=== PATIENT | female | born 1995 | race American Indian/Alaskan Native ===

== ENCOUNTER 2017-09-08 11:26 | Outpatient (CLI) | payer MEDICAID ==
[2017-09-08 11:52] VITALS: BP 110/68
[2017-09-08] MEDS ORDERED: LACTATED RINGERS 500 ML IV ONE (12:22)
[2017-09-08 12:51] LABS: Bilirubin,Urine NEG (Negative); Blood,Urine NEG (Negative); Color,Urine Yellow (Yellow); Mucus,Urine FEW /HPF; Nitrite,Urine NEG (Negative); Protein,Urine <15 mg/dL mg/dL (Negative); RBC,Urine < 1.0 /HPF (0.0-6.0)
[2017-09-08] MEDS ORDERED: LACTATED RINGERS 1,000 ML IV SCH (13:00)
== END 2017-09-08 13:55 | disposition home or self-care (01) ==
LOC: TRG 11:26
PROVIDERS: ATTEND Obstetrics & Gynecology
DX: O47.02 False labor before 37 completed weeks of gestation, second trimester (principal); Z3A.25 25 weeks gestation of pregnancy
CPT/HCPCS: 59025; 81001; J7120

== ENCOUNTER 2017-09-28 11:24 | Outpatient (CLI) | payer MEDICAID ==
[2017-09-28 12:08] VITALS: BP 124/69
[2017-09-28] MEDS ORDERED: NORCO 5/325 PO ONE (13:29)
--- NOTE | 2017-09-28 15:31 | Ultrasound Report ---
ULTRASOUND BIOPHYSICAL PROFILE: History: well being Technique: Transabdominal ultrasound with Doppler interrogation. 2 - breathing movements 2 - movements 2 - posture and tone 2 - Qualitative amniotic fluid volume 8 - TOTAL SCORE OF POSSIBLE 8 Heart Rate (bpm) 154
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
== END 2017-09-28 16:00 | disposition home or self-care (01) ==
LOC: TRG 11:24 → LD 11:26 → TRG 16:00
PROVIDERS: ATTEND Obstetrics & Gynecology
DX: O26.893 Other specified pregnancy related conditions, third trimester (principal); R10.2 Pelvic and perineal pain; V89.2XXA Person injured in unspecified motor-vehicle accident, traffic, initial encounter; O47.03 False labor before 37 completed weeks of gestation, third trimester; Z3A.29 29 weeks gestation of pregnancy; Y93.89 Activity, other specified; Y92.89 Other specified places as the place of occurrence of the external cause; Y99.8 Other external cause status
CPT/HCPCS: 76805; 76819

== ENCOUNTER 2017-11-04 15:40 | Outpatient (CLI) | payer OTHER, MEDICAID ==
[2017-11-04] MEDS ORDERED: LACTATED RINGERS 500 ML IV ONE ×2 (16:53→18:05)
[2017-11-04] MEDS ORDERED: NACL 0.9% 1000 ML 1,000 ML ONE (17:01)
[2017-11-04] MEDS ORDERED: NACL 0.9% 1000 ML 1,000 ML IV SCH (18:00)
[2017-11-04] MEDS ORDERED: BRETHINE SUB-Q SCH (19:00)
[2017-11-05 12:34] VITALS: BP 112/64
== END 2017-11-04 19:48 | disposition home or self-care (01) ==
LOC: TRG 15:40
PROVIDERS: ATTEND Obstetrics & Gynecology
DX: O47.03 False labor before 37 completed weeks of gestation, third trimester (principal); Z3A.33 33 weeks gestation of pregnancy
CPT/HCPCS: 36415; 59025; 82731; 96360; 96361; 96372; J3105; J7030

== ENCOUNTER 2017-11-09 18:50 | Outpatient (CLI) | payer OTHER, MEDICAID ==
[2017-11-09 19:21] VITALS: BP 113/69
[2017-11-09] MEDS ORDERED: LACTATED RINGERS 500 ML IV ONE (19:52)
[2017-11-09 20:08] LABS: Bacteria,Urine 1+ /HPF (Negative); Bilirubin,Urine NEG (Negative); Blood,Urine NEG (Negative); Color,Urine Yellow (Yellow); Mucus,Urine FEW /HPF; Protein,Urine <15 mg/dL mg/dL (Negative)
== END 2017-11-09 22:23 | disposition home or self-care (01) ==
LOC: TRG 18:50
PROVIDERS: ATTEND Obstetrics & Gynecology
DX: O47.03 False labor before 37 completed weeks of gestation, third trimester (principal); Z3A.34 34 weeks gestation of pregnancy
CPT/HCPCS: 59025; 81001

== ENCOUNTER 2017-11-16 09:42 | Outpatient (CLI) | payer OTHER, MEDICAID ==
[2017-11-16] MEDS ORDERED: LACTATED RINGERS 500 ML IV ONE (10:06)
[2017-11-16 10:57] LABS: Bilirubin,Urine NEG (Negative); Blood,Urine NEG (Negative); Protein,Urine <15 mg/dL mg/dL (Negative); Urobilinogen,Urine < 2.0 mg/dL (<2.0)
[2017-11-16 11:00] LABS: Color,Urine Straw (Yellow)
[2017-11-16] MEDS ORDERED: NORMOSOL-R PH 7.4 1,000 ML IV ONE (11:07)
[2017-11-16 12:11] LABS: Hematocrit 38.2 % (30.3-42.9); Hemoglobin 12.7 gm/dl (10.1-14.3); Mean Corpuscular HGB Conc 33 % (30-34); Mean Corpuscular Hemoglobin 26 pg (28-32); Mean Corpuscular Volume 78 fl (79-97); Red Blood Count 4.88 M/mm3 (3.65-5.03); Red Cell Distribution Width 14.7 % (13.2-15.2)
[2017-11-16 12:25] LABS: Alanine Aminotransferase 10 units/L (7-56); Uric Acid 4.7 mg/dL (3.5-7.6)
[2017-11-16 13:01] LABS: Platelet Count 112 K/mm3 (140-440)
[2017-11-16 13:22] VITALS: BP 124/79
== END 2017-11-16 13:45 | disposition home or self-care (01) ==
LOC: TRG 09:42
PROVIDERS: ATTEND Obstetrics & Gynecology
DX: O47.03 False labor before 37 completed weeks of gestation, third trimester (principal); Z3A.35 35 weeks gestation of pregnancy
CPT/HCPCS: 36415; 59025; 81001; 82565; 83615; 84450; 84460; 84550; 85027; 96360; 96361

== ENCOUNTER 2017-11-16 15:38 | Inpatient (IN) | payer OTHER, MEDICAID ==
[2017-11-16] MEDS ORDERED: NORMOSOL-R PH 7.4 1,000 ML IV ONE (15:58)
[2017-11-16] MEDS ORDERED: ZOFRAN IV PRN ×2 (16:46→20:42)
[2017-11-16] MEDS ORDERED: STADOL IV PRN (16:46)
[2017-11-16] MEDS ORDERED: BRETHINE IVP PRN (16:46)
[2017-11-16] MEDS ORDERED: NARCAN 0.4 MG/1 ML IV PRN (16:46)
[2017-11-16] MEDS ORDERED: BRETHINE SUB-Q PRN (16:46)
[2017-11-16] MEDS ORDERED: MINERAL OIL PO PRN (16:46)
[2017-11-16] MEDS ORDERED: SUBLIMAZE IV PRN ×3 (16:46→18:00)
[2017-11-16] MEDS ORDERED: ePHEDrine SULFATE IV PRN ×2 (16:46→18:27)
[2017-11-16] MEDS ORDERED: XYLOCAINE 2% INFILTRATI ONE (16:46)
[2017-11-16] MEDS ORDERED: PHENERGAN PO PRN ×2 (16:46→20:42)
--- NOTE | 2017-11-16 16:52 | History and Physical Report ---
History of Present Illness Date of examination: 11/16/17 Date of admission: 11/16/17 15:38 Chief complaint: my water broke and I have contractions and bleeding History of present illness: This is a 22 yo at 35+4 weeks admitted to labor and delivery for advanced cervical dilation, sobeida, labor. She is a patient of [facility] with hx of labor but declined [place] back in june. she has Sickle cell trait unknown partner status. She also has thrombocytopenia gestational. She has hd contractions in the past with a FFN back in 2018 on Procardia . 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 denies: smoking, alcohol abuse, prescription drug abuse - Obstetrical History Expected Date of Delivery: 12/17/17 Actual Gestation: 35 Week(s) 4 Day(s) : 3 Para: 2 Hx # Term Pregnancies: 1 Number of Pregnancies: 1 Spontaneous Abortions: 0 Induced : 0 Number of Living Children: 2 Medications and Allergies Allergies Allergy/AdvReac Type Severity Reaction Status Date / Time No Known Allergies Allergy Verified 12/06/15 16:04 Home Medications Medication Instructions Recorded Confirmed Last Taken Type NIFEdipine [Procardia] 10 mg PO BID 11/16/17 11/16/17 11/16/17 08:00 History 10 MG Active Meds: Active Medications Betamethasone Acet/Betameth SodPhos ([place] Soluspan) 12 mg IM Q24HR RAE Stop: 11/18/17 10:01 Review of Systems All systems: negative Genitourinary: vaginal bleeding, leakage of fluid, contractions - Physical Exam Breasts: Positive: normal Cardiovascular: Regular rate, Normal S1 Lungs: Positive: Clear to auscultation, Normal air movement Abdomen: Positive: normal appearance, soft, normal bowel sounds. Negative: distention, tenderness, guarding Genitourinary (Female): Positive: normal external genitalia, normal perenium Vulva: both: normal Vagina: Positive: normal moisture Uterus: Positive: normal size Anus/Rectum: Positive: normal perianal skin Extremities: Positive: normal Deep Tendon Reflex Grade: Normal +2 - Obstetrical FHR: category 1 Cervical Dilatation: 3 Uterine Contraction Pattern: Regular Uterine Tone Measurement Phase: Contraction Uterine Contraction Intensity: Mild Results All other labs normal. Assessment and Plan A/P HD#1 labor GBS unknown - amp initiated NICCU consult IVF and labs sent betamethasone x1 now continous monitoring offer epidural at >6cm US to assess for bleeding and cuca expect vaginal delivery
[2017-11-16] MEDS ORDERED: CELESTONE SOLUSPAN IM SCH (17:00)
[2017-11-16] MEDS ORDERED: NORMOSOL-R PH 7.4 1,000 ML IV SCH (17:00)
[2017-11-16] MEDS ORDERED: PITOCin/NS 20 UNIT/1000ML DRIP 20 UNITS/1,000 ML BAG IV SCH ×2 (17:00→21:00)
[2017-11-16] MEDS ORDERED: PITOCin/NS 30 UNIT/500ML 30 UNITS/500 ML BAG IV SCH (17:00)
[2017-11-16] MEDS ORDERED: AMPICILLIN/NS 1 GM/50 ML 1 GM/50 ML BAG IV SCH (17:30)
--- NOTE | 2017-11-16 17:30 | Ultrasound Report ---
FINAL REPORT EXAM: US OB LIMITED HISTORY: vaginal bleeding r/o abruption TECHNIQUE: Ultrasound obstetrical transabdominal for placental evaluation PRIORS: None. FINDINGS: Single live intrauterine gestation present in cephalic presentation. cardiac activity present with heart rate of 152 beats minute Placenta is fundal and grade 2. No evidence for placental abruption. Placenta is not low lying IMPRESSION: No evidence for placental abruption
[2017-11-16] MEDS ORDERED: NARCAN 2 MG/2 ML IV PRN (18:27)
[2017-11-16] MEDS ORDERED: fentaNYL-BUPIV 2 MCG/ML-0.125% 200 MCG/100 ML BAG EPIDURAL SCH (19:00)
--- NOTE | 2017-11-16 19:37 | Anesthesia Consultation ---
Anesthesia Consult and Med Hx Date of service: 11/16/17 - Airway Anesthetic Teeth Evaluation: Good ROM Head & Neck: Adequate Mental/Hyoid Distance: Adequate Mallampati Class: Class III Intubation Access Assessment: Probably Good - Pulmonary Exam CTA: Yes - Cardiac Exam Cardiac Exam: RRR - Pre-Operative Health Status ASA Pre-Surgery Classification: ASA2 Proposed Anesthetic Plan: Epidural, Spinal - Pulmonary Hx Smoking: No Hx Asthma: No COPD: No Hx Pneumonia: No - Cardiovascular System Hx Hypertension: No - Central Nervous System Hx Seizures: No Hx Psychiatric Problems: No - Endocrine Hx Renal Disease: No Hx End Stage Renal Disease: No Hx Hypothyroidism: No Hx Hyperthyroidism: No - Hematic Hx Anemia: No Hx Sickle Cell Disease: No - Other Systems Hx Alcohol Use: No
--- NOTE | 2017-11-16 19:39 | Anesthesia Day of Surgery ---
Anesthesia Day of Surgery - Day of Surgery Patient Examined: Yes Patient H&P Reviewed: Yes Patient is NPO: Yes
[2017-11-16] MEDS ORDERED: PHENERGAN PR PRN (20:42)
[2017-11-16] MEDS ORDERED: LANSINOH TP PRN (20:42)
[2017-11-16] MEDS ORDERED: BENADRYL PO PRN (20:42)
[2017-11-16] MEDS ORDERED: MILK OF MAGNESIA PO PRN (20:42)
[2017-11-16] MEDS ORDERED: DULCOLAX PR PRN (20:42)
[2017-11-16] MEDS ORDERED: TUCKS PAD TP PRN (20:42)
[2017-11-16] MEDS ORDERED: TORADOL IV PRN (20:42)
[2017-11-16] MEDS ORDERED: PERCOCET 5/325 PO PRN (20:42)
--- NOTE | 2017-11-16 20:42 | Procedure Note ---
OB Delivery Note - Delivery Date of Delivery: 11/16/17 Surgeon: EVERTON TAI Estimated blood loss: 200cc - Vaginal Delivery presentation: vertex Delivery position: OA Intrapartum events: labor-<37 weeks Delivery induction: none Delivery augmentation: rupture of membranes, pitocin Delivery monitor: external FHT, external uterine Route of delivery: Delivery placenta: spontaneous Delivery cord: 3 umbilical vessels Episiotomy: none Delivery laceration: none Anesthesia: none Delivery comments: Patient was noted to be c/c+1 and commenced to pushing in OA presentation. The head and shoulders delivered easily. at 2029. The naso and oropharynx suctioned while baby lie on mothers chest. Apgars 8 and 9. The cord was clamped and cut The placenta delivered at 2032 intact with 3 vessel cord. EBL 200 cc. No lacs noted. Patient tolerated procedure well. Male weighing 2559g. - A at 1 minute: 8 at 5 minutes: 9 Infant Gender: Male
[2017-11-16] MEDS ORDERED: SODIUM CHLORIDE FLUSH SYRINGE 10 ML IV SCH (21:00)
[2017-11-17] MEDS: MOTRIN PO SCH ×3 (00:05→13:10)
[2017-11-17] MEDS: COLACE PO SCH ×2 (00:06→09:15)
[2017-11-17] MEDS: SENOKOT S PO SCH (00:06)
[2017-11-17] MEDS: TYLENOL PO PRN ×2 (01:25→07:35)
[2017-11-17] MEDS ORDERED: BOOSTRIX IM ONE (06:00)
[2017-11-17] MEDS: NORCO 5/325 PO PRN ×2 (09:15→16:00)
[2017-11-17] MEDS ORDERED: PRENATAL VITAMIN PO SCH (10:00)
[2017-11-17 10:08] LABS: Hematocrit 32.6 % (30.3-42.9); Hemoglobin 10.8 gm/dl (10.1-14.3)
--- NOTE | 2017-11-17 11:37 | Progress Note ---
Assessment and Plan A: PPD#1 s/p at 35 wks Headache- concern for spinal headache P: Anesethesia consult Routine care. Anticipate discharge after 48 hrs observation Subjective - Subjective Date of service: 11/17/17 Principal diagnosis: s/p at 35 wks; Thrombocytopenia Interval history: Pt c/o headache since epidural placement that is somewhat improved since this morning. Patient reports: appetite normal, voiding normally : doing well Objective - Vital Signs Latest vital signs: Vital Signs Temp Pulse Resp BP BP Pulse Ox 11/17/17 09:42 98.4 F 64 18 108/62 96 11/17/17 03:45 97.9 F 60 20 101/52 11/17/17 03:32 97.9 F 66 20 101/52 96 11/16/17 22:31 99.5 F 67 20 114/69 98 11/16/17 21:56 87 147/85 11/16/17 21:55 85 143/79 11/16/17 21:41 83 123/79 11/16/17 21:26 92 H 20 121/80 121/80 11/16/17 21:13 76 20 117/78 117/78 11/16/17 20:41 98.0 F 93 H 20 111/67 116/67 11/16/17 17:59 93 H 115/72 11/16/17 17:40 20 Intake and Output 11/16/17 11/17/17 11/17/17 22:59 06:59 14:59 Intake Total 240 Output Total 1000 Balance -1000 240 Intake: Oral 240 Output: Urine 1000 Void 1000 Other: Total, Intake Amount 240 Total, Output Amount 400 # Voids Void 1 Weight 67.132 kg Estimated Blood Loss 200 - Exam Breasts: Present: deferred Cardiovascular: Present: Regular rate Lungs: Present: Clear to auscultation Abdomen: Present: soft Uterus: Present: normal Extremities: Present: normal
--- NOTE | 2017-11-17 16:25 | Progress Note ---
Subjective Date of service: 11/17/17 Interval history: 1st day after normal vaginal delivery Patient is complaining to headache that gets worse in the vertical position. Type of headache is consistent with spinal headache. Over the last few hours the intensity of headache has decreased. Patient has been explained the potential reason for her headache and available options for its treatment. Decided to assess the headache tomorrow morning. Continue conservative treatment Objective - Constitutional Vitals: Vital Signs - 12hr 11/17/17 09:42 Temperature 98.4 F Pulse Rate 64 Respiratory 18 Rate Blood Pressure 108/62 O2 Sat by Pulse 96 Oximetry - Labs CBC & Chem 7: 11/17/17 09:51
[2017-11-17] MEDS ORDERED: M-M-R II VACCINE SUB-Q ONE (20:42)
[2017-11-17] MEDS: FIORICET PO PRN (20:49)
[2017-11-18] MEDS: MOTRIN PO SCH ×3 (00:11→14:45)
[2017-11-18] MEDS: FIORICET PO PRN ×2 (01:10→12:05)
[2017-11-18] MEDS: SENOKOT S PO SCH (06:41)
[2017-11-18] MEDS: COLACE PO SCH ×2 (06:41→12:05)
--- NOTE | 2017-11-18 08:35 | Progress Note ---
Assessment and Plan O: VSS AF PP H/H: 10.8/32.6 A: Stable PP Day 2 Spinal RODRIGUEZ P: Anesthesia consult Subjective - Subjective Date of service: 11/18/17 Principal diagnosis: s/p at 35 wks; Thrombocytopenia Patient reports: appetite normal, voiding normally, pain well controlled, ambulating normally, other (voiced RODRIGUEZ greatly improved with medication. Awaiting anethesia consult to reevaluate. Declined blood patch) [place]: doing well Objective - Vital Signs Latest vital signs: Vital Signs Temp Pulse Resp BP BP Pulse Ox 11/18/17 00:15 98.0 F 81 20 99/49 97 11/17/17 18:57 97.9 F 64 18 115/69 98 11/17/17 12:58 98.7 F 71 18 116/67 96 11/17/17 09:42 98.4 F 64 18 108/62 96 Intake and Output 11/17/17 11/18/17 11/18/17 22:59 06:59 14:59 Intake Total 240 240 Balance 240 240 Intake: Oral 240 240 Other: Total, Intake Amount 240 240 # Voids Void 1 - Exam Breasts: Present: deferred Abdomen: Present: normal appearance, soft. Absent: distention, tenderness Vulva: both: normal Uterus: Present: normal, firm, fundal height below umbilicus Extremities: Present: normal
--- NOTE | 2017-11-18 08:41 | Discharge Summary ---
Providers - Providers Date of Admission: 11/16/17 15:38 Date of discharge: 11/18/17 Attending physician: YAJAIRA TAN 11/16/17 16:48 Consult to Physician [CONS] Routine Comment: Consulting Provider: INGE SAMSON Physician Instructions: Reason For Exam: nicu Primary care physician: YAJAIRA TAN Hospitalization Reason for admission: labor, IUP at term Delivery: Episiotomy: none Laceration: none Incision: normal Other procedures: none complications: none Discharge diagnosis: delivery baby: male Condition at discharge: Good Disposition: DC-01 TO HOME OR SELFCARE Plan - Discharge Medications Prescriptions: Butalb/Acetaminophen/Caffeine [Fioricet 50-300-40 mg CAP] 1 cap PO Q6HR PRN #30 cap PRN Reason: pain HYDROcodone/ACETAMINOPHEN [[place] 5-325 Tablet] 1 each PO Q6H PRN #20 tablet PRN Reason: Pain Ibuprofen [Motrin] 800 mg PO Q8HR PRN #30 tablet PRN Reason: Pain - Provider Discharge Summary Activity: routine, no sex for 6 weeks, no heavy lifting 4 weeks, no strenuous exercise Diet: routine Instructions: routine Additional instructions: [] Smoking cessation referral if applicable(refer to patient education folder for contact #) [] Refer to [facility]'s [facility] Booklet Call your doctor immediately for: * Fever > 100.5 * Heavy vaginal bleeding ( >1 pad per hour) * Severe persistent headache * Shortness of breath * Reddened, hot, painful area to leg or breast * Drainage or odor from incision. * Keep incision clean and dry at all times and follow doctor's instructions regarding bathing/showering - Follow up plan Follow up: YAJAIRA TAN MD [Primary Care Provider] - (RTO 4 weeks . Call office for infant circumcision)
[2017-11-18] MEDS ORDERED: NACL 0.9% 500 ML 500 ML ONE (15:35)
--- NOTE | 2017-11-18 15:56 | History and Physical Report ---
SUBJECTIVE: The patient has been complaining of frontal headaches. The patient is status post vaginal delivery and for this delivery she received an epidural anesthesia on 11/16/2017 and the patient had her vaginal delivery and the day after her vaginal delivery she started complaining of headaches and these headaches are positional, would increase whenever she sit up or stand up and would decrease whenever she would lay down flat on the bed. The patient also complained of nausea and neck pain. On examining the patient today we decided that the patient had post-spinal headache and we informed the patient and she consented to do epidural blood patch. PROCEDURE: After an informed consent was signed the patient made to sit up and lumbar area was prepped and draped with Betadine solution. Two mL of 1% lidocaine was infiltrated on the L2-L3 interspace. An #18-gauge needle was used to identify the epidural space with loss of resistance technique. Once the epidural space was identified the patient's blood, which was drawn from her left antecubital vein was injected in the epidural space under sterile technique. The patient tolerated the procedure well. Vital signs stable. After the procedure, she was made to lay in her bed and an hour after the procedure was done, she had very minimal headache. She was discharged to go home and we gave her the instructions of not to lift anything heavy, bed rest, drink lot of fluids. JOB# [id number] LAMONT/SAUMYA
[2017-11-18 16:28] VITALS: BP 113/60
[2017-11-18] MEDS: NORCO 5/325 PO PRN (17:30)
== END 2017-11-18 20:33 | disposition home or self-care (01) | DRG 775 ==
LOC: LD 15:38 → OB 22:11
PROVIDERS: ADMIT Obstetrics & Gynecology; ATTEND Obstetrics & Gynecology
PROC: 10E0XZZ Delivery of Products of Conception, External Approach (ICD-10-PCS; principal; 2017-11-16)
PROC: 3E0234Z Introduction of Serum, Toxoid and Vaccine into Muscle, Percutaneous Approach (ICD-10-PCS; 2017-11-17)
DX: O60.14X0 Preterm labor third trimester with preterm delivery third trimester, not applicable or unspecified (principal); O99.12 Other diseases of the blood and blood-forming organs and certain disorders involving the immune mechanism complicating childbirth; Z3A.35 35 weeks gestation of pregnancy; Z37.0 Single live birth; Z23 Encounter for immunization; O89.4 Spinal and epidural anesthesia-induced headache during the puerperium; D69.6 Thrombocytopenia, unspecified
CPT/HCPCS: 36415; 76815; 85014; 85018; 86592; 86850; 86900; 86901; 99211; G0463; J0290; J0595; J0702; J1885; J2405; J2590; J7040

== ENCOUNTER 2017-11-20 13:22 | Inpatient (IN) | payer OTHER, MEDICAID ==
[2017-11-20] MEDS ORDERED: TORADOL IV ONE (14:02)
[2017-11-20] MEDS ORDERED: DECADRON IV ONE (14:02)
[2017-11-20] MEDS ORDERED: ZOFRAN IV ONE (14:02)
--- NOTE | 2017-11-20 14:36 | Emergency Department Report ---
ED Headache HPI - General Chief Complaint: Headache Stated Complaint: HEADACHE Time Seen by Provider: 11/20/17 13:52 - History of Present Illness Allergies/Adverse Reactions: Allergies No Known Allergies Allergy (Verified 12/06/15 16:04) Home Medications: Ambulatory Orders NIFEdipine [Procardia] 10 mg PO BID 11/16/17 HYDROcodone/ACETAMINOPHEN [[place] 5-325 Tablet] 1 each PO Q6H PRN #20 tablet Ibuprofen [Motrin] 800 mg PO Q8HR PRN #30 tablet 11/17/17 Butalb/Acetaminophen/Caffeine [Fioricet 50-300-40 mg CAP] 1 cap PO Q6HR PRN #30 cap 11/18/17 ED Review of Systems ROS: Stated complaint: HEADACHE Other details as noted in HPI ED Past Medical Hx - Past Medical History Previous Medical History?: Yes Hx Hypertension: No Hx Congestive Heart Failure: No Hx Diabetes: No Hx Deep Vein Thrombosis: No Hx Renal Disease: No Hx Sickle Cell Disease: No Hx Seizures: No Hx Asthma: No Hx COPD: No Hx HIV: No Additional medical history: preeclampsia - Surgical History Past Surgical History?: No - Social History Smoking Status: Never Smoker Substance Use Type: Prescribed - Medications Home Medications: Home Medications Medication Instructions Recorded Confirmed Last Taken Type NIFEdipine [Procardia] 10 mg PO BID 11/16/17 11/16/17 11/16/17 08:00 History 10 MG HYDROcodone/ACETAMINOPHEN [[place] 1 each PO Q6H PRN #20 tablet 11/17/17 Unknown Rx 5-325 Tablet] Ibuprofen [Motrin] 800 mg PO Q8HR PRN #30 tablet 11/17/17 Unknown Rx Butalb/Acetaminophen/Caffeine 1 cap PO Q6HR PRN #30 cap 11/18/17 Unknown Rx [Fioricet 50-300-40 mg CAP] ED Physical Exam - General Limitations: No Limitations ED Course Vital Signs 11/20/17 13:26 Temperature 98.8 F Pulse Rate 69 Respiratory 14 Rate Blood Pressure 138/92 O2 Sat by Pulse 100 Oximetry Critical care attestation.: If time is entered above; I have spent that time in minutes in the direct care of this critically ill patient, excluding procedure time. ED Disposition Clinical Impression: Preeclampsia, Headache Disposition: OP ADMIT IP TO THIS HOSP Is pt being admited?: Yes Does the pt Need Aspirin: No Condition: Stable Time of Disposition: 14:36
[2017-11-20] MEDS ORDERED: MAGNESIUM SULFATE 4GM/100ML 4 GM/100 ML BAG IV ONE (15:00)
[2017-11-20] MEDS ORDERED: SUBLIMAZE IV ONE (15:00)
[2017-11-20] MEDS ORDERED: MAGNESIUM SULFATE 40GM/1000ML 40 GM/1,000 ML BAG IV SCH ×2 (15:00→20:00)
--- NOTE | 2017-11-20 15:08 | Emergency Department Report ---
ED Headache HPI - General Chief Complaint: Headache Stated Complaint: HEADACHE Time Seen by Provider: 11/20/17 13:52 Source: patient, family, other (OB Marine Specialist Radha) - History of Present Illness Initial Comments: Ms. Carlson is a female patient who recently delivered a healthy baby boy on Wednesday. She received epidural for vaginal delivery. On she received a blood patch for headache which usually resolved her pain. Headache returned on Wednesday. She has persistent headache and ibuprofen, caffeine containing pill and hydrocodone. Denies having global throbbing headache. Denies neck stiffness. Positive photophobia Positive nausea. She is not breast-feeding. She did have preeclampsia in her first . She spoke with shake packer Radha who recommended ED evaluation. Timing/Duration: other (5 daus) Quality: severe Head Injury Location: frontal, global Recent Head Trauma: no recent headache/trauma, occasional headaches Modifying Factors: improves with: exposure to light. worse with: movement Associated Symptoms: denies: confusion, fatigue, facial pain, fever/chills, flushing, loss of consciousness, nasal congestion, nasal drainage, numbness in legs/feet, seizures, sinus infection, stiff neck, vision changes, weakness Allergies/Adverse Reactions: Allergies No Known Allergies Allergy (Verified 12/06/15 16:04) Home Medications: Ambulatory Orders NIFEdipine [Procardia] 10 mg PO BID 11/16/17 HYDROcodone/ACETAMINOPHEN [[place] 5-325 Tablet] 1 each PO Q6H PRN #20 tablet Ibuprofen [Motrin] 800 mg PO Q8HR PRN #30 tablet 11/17/17 Butalb/Acetaminophen/Caffeine [Fioricet 50-300-40 mg CAP] 1 cap PO Q6HR PRN #30 cap 11/18/17 ED Review of Systems ROS: Stated complaint: HEADACHE Other details as noted in HPI Comment: All other systems reviewed and negative Constitutional: denies: chills, fever, malaise Respiratory: denies: cough Cardiovascular: denies: chest pain Gastrointestinal: denies: abdominal pain ED Past Medical Hx - Past Medical History Previous Medical History?: Yes Hx Hypertension: No Hx Congestive Heart Failure: No Hx Diabetes: No Hx Deep Vein Thrombosis: No Hx Renal Disease: No Hx Sickle Cell Disease: No Hx Seizures: No Hx Asthma: No Hx COPD: No Hx HIV: No Additional medical history: preeclampsia - Surgical History Past Surgical History?: No - Social History Smoking Status: Never Smoker Substance Use Type: Prescribed - Medications Home Medications: Home Medications Medication Instructions Recorded Confirmed Last Taken Type NIFEdipine [Procardia] 10 mg PO BID 11/16/17 11/16/17 11/16/17 08:00 History 10 MG HYDROcodone/ACETAMINOPHEN [[place] 1 each PO Q6H PRN #20 tablet 11/17/17 Unknown Rx 5-325 Tablet] Ibuprofen [Motrin] 800 mg PO Q8HR PRN #30 tablet 11/17/17 Unknown Rx Butalb/Acetaminophen/Caffeine 1 cap PO Q6HR PRN #30 cap 11/18/17 Unknown Rx [Fioricet 50-300-40 mg CAP] ED Physical Exam - General Limitations: No Limitations General appearance: alert, in no apparent distress - Head Head exam: Present: atraumatic, normocephalic - Eye Eye exam: Present: normal appearance - ENT ENT exam: Present: mucous membranes moist - Neck Neck exam: Present: normal inspection. Absent: meningismus - Respiratory Respiratory exam: Present: normal lung sounds bilaterally. Absent: respiratory distress, wheezes, rales, rhonchi - Cardiovascular Cardiovascular Exam: Present: regular rate, normal rhythm, normal heart sounds. Absent: systolic murmur, diastolic murmur, rubs, gallop - GI/Abdominal GI/Abdominal exam: Present: soft, normal bowel sounds. Absent: distended, tenderness, guarding, rebound - Extremities Exam Extremities exam: Present: normal inspection - Back Exam Back exam: Present: normal inspection - Neurological Exam Neurological exam: Present: alert, oriented X3, CN II-XII intact, normal gait. Absent: motor sensory deficit - Psychiatric Psychiatric exam: Present: normal affect, normal mood - Skin Skin exam: Present: warm, dry, intact, normal color. Absent: rash ED Course Vital Signs 11/20/17 13:26 Temperature 98.8 F Pulse Rate 69 Respiratory 14 Rate Blood Pressure 138/92 O2 Sat by Pulse 100 Oximetry ED Medical Decision Making - Medical Decision Making with elevated BP 138/92 and headache, OB shake packer Radha suggested magnesium infusion and admission to mother/baby for preeclampsia. admitted to mother baby in stable condition Critical care attestation.: If time is entered above; I have spent that time in minutes in the direct care of this critically ill patient, excluding procedure time. ED Disposition Clinical Impression: Preeclampsia, Headache Disposition: DC-09 OP ADMIT IP TO THIS HOSP Is pt being admited?: Yes Does the pt Need Aspirin: No Condition: Stable
[2017-11-20 15:13] LABS: Basophils % (Auto) 0.2 % (0.0-1.8); Eosinophils # (Auto) 0.1 K/mm3 (0.0-0.4); Eosinophils % (Auto) 2.2 % (0.0-4.3); Hematocrit 37.1 % (30.3-42.9); Hemoglobin 11.9 gm/dl (10.1-14.3); Lymphocytes # (Auto) 1.2 K/mm3 (1.2-5.4); Lymphocytes % (Auto) 17.1 % (13.4-35.0); Mean Corpuscular HGB Conc 32 % (30-34); Mean Corpuscular Volume 80 fl (79-97); Monocytes # (Auto) 0.4 K/mm3 (0.0-0.8); Monocytes % (Auto) 6.6 % (0.0-7.3); Platelet Count 157 K/mm3 (140-440); Red Blood Count 4.66 M/mm3 (3.65-5.03)
[2017-11-20 15:15] LABS: Mean Corpuscular Hemoglobin 26 pg (28-32)
[2017-11-20 15:38] LABS: Alanine Aminotransferase 68 units/L (7-56); Albumin 3.2 g/dL (3.9-5); BUN/Creatinine Ratio 14; Blood Urea Nitrogen 7 mg/dL (7-17); Calcium 8.6 mg/dL (8.4-10.2); Hemolysis Index 47
[2017-11-20] MEDS: NORCO 5/325 PO PRN (18:30)
[2017-11-20] MEDS: LACTATED RINGERS 1,000 ML IV SCH (19:03)
[2017-11-20 19:05] LABS: Bilirubin,Urine NEG (Negative); Blood,Urine LG (Negative); Color,Urine Yellow (Yellow); Mucus,Urine FEW /HPF; Protein,Urine <15 mg/dL mg/dL (Negative); Urobilinogen,Urine < 2.0 mg/dL (<2.0)
[2017-11-20] MEDS: FIORICET PO PRN (22:17)
[2017-11-21] MEDS: FIORICET PO PRN ×3 (04:52→16:28)
[2017-11-21] MEDS: LACTATED RINGERS 1,000 ML IV SCH (06:27)
[2017-11-21] MEDS: NORCO 5/325 PO PRN (08:17)
--- NOTE | 2017-11-21 15:20 | History and Physical Report ---
History of Present Illness Date of examination: 11/21/17 Date of admission: 11/20/17 14:37 History of present illness: 22 yo day Day 4. Called with c/o severe headache since discharge. Rates pain 7/10. Headache frontal only. denies blurred vision, scotoma, head injury,or epigastric pain. After SVE on 11/16/17, experienced spinal headache. Received blood patch with complete success. But headache returned. Denies history of migraine headache or seizures. History of PIH with previous . BP WNL on admission and since. Liver function elevated. Started on magnesium sulfate. Past History Past Medical History: other (History of preeclampsia with previous ) Social history: no significant social history, single - Obstetrical History : 3 Medications and Allergies Allergies Allergy/AdvReac Type Severity Reaction Status Date / Time No Known Allergies Allergy Verified 12/06/15 16:04 Home Medications Medication Instructions Recorded Confirmed Last Taken Type NIFEdipine [Procardia] 10 mg PO BID 11/16/17 11/20/17 11/16/17 08:00 History 10 MG HYDROcodone/ACETAMINOPHEN [[place] 1 each PO Q6H PRN #20 tablet 11/17/17 11/20/17 1 Day Ago Rx 5-325 Tablet] ~11/19/17 Ibuprofen [Motrin] 800 mg PO Q8HR PRN #30 tablet 11/17/17 11/20/17 1 Day Ago Rx ~11/19/17 Butalb/Acetaminophen/Caffeine 1 cap PO Q6HR PRN #30 cap 11/18/17 11/20/17 Unknown Rx [Fioricet 50-300-40 mg CAP] Active Meds: Active Medications Acetaminophen/Butalbital/Caffeine (Fioricet) 2 tab PO Q4H PRN PRN Reason: Headache Last Admin: 11/21/17 10:13 Dose: 2 tab Acetaminophen/Hydrocodone Bitart ([place] 5/325) 1 each PO Q4H PRN PRN Reason: For Pain/Fever/Headache Last Admin: 11/21/17 08:17 Dose: 1 each Lactated Ringer's (Lactated Ringers) 1,000 mls @ 75 mls/hr IV DIRECT RAE Last Admin: 11/21/17 06:27 Dose: 75 mls/hr Magnesium Sulfate (Magnesium Sulfate 40gm/1000ml) 40 gm in 1,000 mls @ 50 mls/ hr IV DIRECT RAE Last Admin: 11/21/17 12:47 Dose: 2 gm/hr, 50 mls/hr Review of Systems All systems: negative Eyes: normal appearance Cardiovascular: no chest pain, no palpitations, no syncope, no high blood pressure Breasts: deferred Rectal Exam: no deferred Neurological: headaches, no head injury, no paralysis, no seizures, no syncope, no vertigo, no migraines, no convulsions, no change in speech, no confusion, no changes in smell/taste, no double vision, no loss of vision, no paralysis - Vital Signs Vital signs: Vital Signs Temp Pulse Resp BP Pulse Ox 98.8 F 69 14 138/92 100 11/20/17 13:26 11/20/17 13:26 11/20/17 13:26 11/20/17 13:26 11/20/17 13:26 Temp Pulse Resp BP Pulse Ox 97.7 F 77 20 110/65 100 11/21/17 14:02 11/21/17 14:02 11/21/17 14:02 11/21/17 14:02 11/21/17 14:02 - Physical Exam Breasts: Positive: deferred Lungs: Positive: Normal air movement Abdomen: Positive: normal appearance, soft Vagina: Positive: normal moisture Results Result Diagrams: 11/20/17 15:00 11/20/17 15:00 Abnormal lab results 11/20/17 11/21/17 Range/Units 15:00 00:22 Creatinine 0.5 L (0.7-1.2) mg/dL Magnesium 5.10 H (1.7-2.3) mg/dL AST 66 H (5-40) units/L ALT 68 H (7-56) units/L Albumin 3.2 L (3.9-5) g/dL All other labs normal. Assessment and Plan O: VSS AF AST and ALT elevated A: PP Day 4 Severe Headache r/o spinal headache P; Anesthesia consult
[2017-11-21] MEDS: MOTRIN PO PRN (16:33)
--- NOTE | 2017-11-21 16:38 | Progress Note ---
Subjective Date of service: 11/21/17 Principal diagnosis: headache Interval history: Reported to the floor to evaluate the patient for potential PDP headache. In review of the records, the patient moved at time of placement of ROSEMARY leading to the placement of intrathecal catheter. The patient developed a headache prior to discharge for which she initially refused a blood patch but later agreed. The patient obtained substantial relief from the blood patch at that time and went home with Fioricet. Headache returned in the post temporal zone more on the left than the right. The nurse reports that the headache is positional but prefers to be with the head of the bed elevated. CN 2 through 12 grossly intact. Bed at about 30 degrees upon entering. Raised the head of the bed to 90 degrees without increase of pain. Tenderness to pressure over the insertion of the trapezius muscle on the left (remainder of exam negative for any substantial findings) consistent with the predominately left sided headache. Branches of C2 and C3 pass through this area and are likely being aggravated by the tight trapezius muscle. This is also consistent with the report of the magnesium infusion helping. Treatment for trapezius muscle spasm consists primarily of stretching maneuvers of which were demonstrated for the patient. For the discomfort while the muscle is being trained to relax could include a trigger point at the insertion site. This is not a dangerous procedure without substantial discomfort but should be done only by someone trained in the technique. In regards to pharmaceuticals, consider topical lidocaine, a muscle relaxant and an NSAID. Continuation of the Fioricet with or without codeine is reasonable. If this is less than adequate, avoid Flexeril so that amitriptyline 25mg can be added at bedtime and utilize tizantidine. There may still be a component of PDPH pain. If the plan as stated above is less than adequate, anesthesia can perform a second blood patch when the patient chooses. Objective - Constitutional Vitals: Vital Signs - 12hr 11/21/17 11/21/17 11/21/17 04:52 05:57 08:38 Temperature 97.7 F Pulse Rate 76 59 L Respiratory 20 18 18 Rate Blood Pressure 114/66 120/81 [Left] O2 Sat by Pulse 99 Oximetry 11/21/17 11/21/17 11/21/17 09:58 12:03 14:02 Temperature 98.3 F 97.5 F L 97.7 F Pulse Rate 64 66 77 Respiratory 18 16 20 Rate Blood Pressure 122/78 122/77 110/65 [Left] O2 Sat by Pulse 100 100 Oximetry - Labs CBC & Chem 7: 11/20/17 15:00 11/20/17 15:00 Labs: Abnormal lab results 11/20/17 11/21/17 Range/Units 15:00 00:22 Creatinine 0.5 L (0.7-1.2) mg/dL Magnesium 5.10 H (1.7-2.3) mg/dL AST 66 H (5-40) units/L ALT 68 H (7-56) units/L Albumin 3.2 L (3.9-5) g/dL
[2017-11-21] MEDS: LIDODERM 5% TD SCH (19:19)
[2017-11-21] MEDS: FLEXERIL PO SCH (20:14)
[2017-11-22] MEDS: FIORICET PO PRN ×2 (06:16→19:39)
[2017-11-22] MEDS: FLEXERIL PO SCH ×3 (11:05→23:41)
[2017-11-22] MEDS: MOTRIN PO PRN ×2 (11:06→23:41)
--- NOTE | 2017-11-22 13:21 | Progress Note ---
Assessment and Plan PPD with presumed spinal headache seen by anesthesia recommended release of trapezius vs second blood patch patient desires blood patch will call anesthesia Subjective - Subjective Date of service: 11/22/17 Principal diagnosis: headache Patient reports: appetite normal, voiding normally, pain well controlled, flatus , ambulating normally [place]: doing well Objective - Vital Signs Latest vital signs: Vital Signs Temp Pulse Resp BP Pulse Ox 11/22/17 08:28 98.5 F 50 L 18 134/73 98 11/22/17 06:16 18 11/22/17 04:00 98.6 F 78 18 102/69 11/21/17 23:30 98.6 F 61 16 116/61 11/21/17 19:30 98.7 F 18 L 16 120/74 11/21/17 16:12 98.4 F 64 16 123/72 100 11/21/17 14:02 97.7 F 77 20 110/65 100 Intake and Output 11/21/17 11/22/17 11/22/17 23:59 07:59 15:59 Intake Total 360 420 Output Total 650 Balance -290 420 Intake: Oral 360 120 Intake, Free Water 300 Output: Urine 650 Indwelling Catheter 650 Other: Total, Intake Amount 360 120 Total, Output Amount 650 Voiding Method Toilet # Voids Void 1 - Exam Breasts: Present: deferred Cardiovascular: Present: Regular rate Lungs: Present: Clear to auscultation, Normal air movement Abdomen: Present: normal appearance, soft, normal bowel sounds. Absent: distention, tenderness, guarding Vulva: both: normal Uterus: Present: normal, firm Extremities: Present: normal Deep Tendon Reflex Grade: Normal +2
[2017-11-22] MEDS: LIDODERM 5% TD SCH (19:40)
[2017-11-23] MEDS: FIORICET PO PRN (02:16)
[2017-11-23] MEDS: FLEXERIL PO SCH (08:21)
[2017-11-23] MEDS: MOTRIN PO PRN (08:25)
--- NOTE | 2017-11-23 08:37 | Progress Note ---
Assessment and Plan - Patient Problems (1) Head ache Current Visit: Yes Status: Acute Plan to address problem: patient improved clinically discharge home Subjective - Subjective Date of service: 11/23/17 Principal diagnosis: headache Interval history: The patient reports improvement in her symptoms. She currently declines a second blood patch. Patient reports: appetite normal, voiding normally, pain well controlled Objective - Vital Signs Latest vital signs: Vital Signs Temp Pulse Resp BP BP Pulse Ox 11/23/17 08:25 20 11/23/17 04:52 99.0 F 51 L 20 121/72 98 11/23/17 03:16 18 11/23/17 02:16 18 11/22/17 23:41 18 11/22/17 23:15 98.4 F 47 L 20 133/75 98 11/22/17 20:49 99.2 F 56 L 20 115/71 95 11/22/17 20:39 18 11/22/17 19:39 18 11/22/17 17:17 97.9 F 50 L 18 135/69 135/69 99 11/22/17 12:24 98.5 F 53 L 18 131/79 131/79 99 Intake and Output 11/22/17 11/23/17 11/23/17 22:59 06:59 14:59 Intake Total 240 600 Balance 240 600 Intake: Oral 240 Intake, Free Water 600 Other: Total, Intake Amount 240 # Voids Void 1 2
--- NOTE | 2017-11-23 08:39 | Discharge Summary ---
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 The patient received a blood patch starting her prior admission with temporary improvement of symptoms however her headaches did return. The patient was evaluated by anesthesia. She had improvement of symptoms with conservative measures. The patient declined a second blood patch. She was discharged home in stable condition. Condition at discharge: Good Disposition: DC-01 TO HOME OR SELFCARE - Discharge Diagnoses (1) Head ache Status: Acute Plan - Discharge Medications Prescriptions: Butalb/Acetaminophen/Caffeine [Fioricet 50-300-40 mg CAP] 1 cap PO Q6HR PRN #30 cap PRN Reason: Headache - Provider Discharge Summary Activity: no sex for 6 weeks, no heavy lifting 4 weeks, no strenuous exercise Diet: routine Instructions: routine Additional instructions: [] Smoking cessation referral if applicable(refer to patient education folder for contact #) [] Refer to [facility] Booklet Call your doctor immediately for: * Fever > 100.5 * Heavy vaginal bleeding ( >1 pad per hour) * Severe persistent headache * Shortness of breath * Reddened, hot, painful area to leg or breast * Scheduled visit in 4 weeks - Follow up plan
[2017-11-23 09:44] VITALS: BP 148/82
== END 2017-11-23 10:10 | disposition home or self-care (01) | DRG 776 ==
LOC: ED 13:22 → OB 14:37
PROVIDERS: ADMIT Obstetrics & Gynecology; ATTEND Obstetrics & Gynecology
DX: O89.4 Spinal and epidural anesthesia-induced headache during the puerperium (principal); O14.95 Unspecified pre-eclampsia, complicating the puerperium; Z53.29 Procedure and treatment not carried out because of patient's decision for other reasons
CPT/HCPCS: 36415; 80053; 81001; 83735; 84550; 85025; J1100; J1885; J2405; J3010; J3475; J7120

== ENCOUNTER 2022-02-13 12:32 | Inpatient (IN) | payer MEDICAID ==
[2022-02-13] MEDS ORDERED: ONDANSETRON 4 MG/2 ML INJ ONE (16:34)
[2022-02-13] MEDS ORDERED: LACTATED RINGERS 1,000 ML ONE ×2 (19:43→21:07)
[2022-02-13] MEDS ORDERED: ACETAMINOPHEN 325 MG TAB PO ONE (19:50)
--- NOTE | 2022-02-13 22:05 | Ultrasound Report ---
Biophysical profile/OB ultrasound INDICATION: Premature rupture of membranes FINDINGS: Biophysical profile measures 8 out of 8 with a heart rate 153. 30 weeks 5 days IMPRESSION: Biophysical profile 8 out of 8 Signer Name: Gustavo Mendoza MD Signed: 02/13/2022 10:01 PM Workstation Name: [id number]
--- NOTE | 2022-02-14 00:40 | Ultrasound Report ---
US OB limited INDICATION / CLINICAL INFORMATION: posible leaking. TANVIR only COMPARISON: biophysical profile 02/13/2022 TECHNIQUE: Using a transcutaneous probe, multiple grayscale, color Doppler, and spectral Doppler imag es of the uterus and fetus were captured and stored. FINDINGS: Single cephalic fetus is demonstrated heart rate of 157 bpm. Amniotic fluid index is low measuring 4.4 cm. A grade 1-2 anterior placenta is present. Biparietal Diameter = 8.19 cm = 30, 6 weeks, days Head Circumference = 29.07 cm = 32, 0 weeks, days Abdominal Circumference = 27.08 cm = 31, 1 weeks, days Femur Length = 5.83 cm = 30, 3 weeks, days Average Ultrasound Age (AUA) = 31, 4 weeks, days. EDC 04/13/2022. Clinical estimate of gestational age is 30 weeks 5 days. Estimated weight = 1713 g. Growth percentile 54%.. IMPRESSION: 1. Oligohydramnios. Findings could be compatible with premature rupture of membranes. Signer Name: Rahul Mallory II, MD Signed: 02/14/2022 12:35 AM Workstation Name: [id number]
[2022-02-14] MEDS: BETAMET ACET/BETAMET NA PH 6 MG/ML INJ 5 ML MDV IM SCH (01:23)
[2022-02-14] MEDS: ERYTHROMYCIN LACTOBIONATE 250 MG in SODIUM CHLORIDE 0.9% 100 ML IV SCH ×4 (03:13→19:37)
[2022-02-14] MEDS ORDERED: ONDANSETRON 4 MG/2 ML INJ ONE (04:16)
[2022-02-14 06:40] LABS: Hematocrit 32.1 % (30.3-42.9); Hemoglobin 10.4 gm/dl (10.1-14.3); Mean Corpuscular HGB Conc 33 % (30-34); Mean Corpuscular Volume 80 fl (79-97); Platelet Count 127 K/mm3 (140-440); Red Cell Distribution Width 13.8 % (13.2-15.2)
--- NOTE | 2022-02-14 10:32 | History and Physical Report ---
History of Present Illness Date of examination: 02/14/22 Date of admission: 02/14/22 01:22 Chief complaint: I think my water broke History of present illness: Patient 26-year-old 3 para 2 who presented to triage with complaint of leaking of fluid. Patient was found to be febrile while in triage with a temperature of 101. IV fluids and Tylenol were given. An ultrasound was also ordered and the patient's TANVIR was found to be 4.4. This point decision was made to admit the patient for potential rupture of membranes and at least oligohydramnios. Patient states that she had her other 2 children prematurely. She is not sobeida. records are not available for review. Past History Past Medical History: no pertinent history Past Surgical History: no surgical history Social history: no significant social history, single - Obstetrical History Expected Date of Delivery: 04/10/22 Actual Gestation: 32 Week(s) 2 Day(s) : 3 Para: 2 Medications and Allergies Allergies Allergy/AdvReac Type Severity Reaction Status Date / Time No Known Allergies Allergy Verified 12/06/15 16:04 Home Medications Medication Instructions Recorded Confirmed Last Taken Type NIFEdipine [Procardia] 10 mg PO BID 11/16/17 11/20/17 11/16/17 08:00 History 10 MG HYDROcodone/ACETAMINOPHEN [[place] 1 each PO Q6H PRN #20 tablet 11/17/17 11/20/17 1 Day Ago Rx 5-325 Tablet] ~11/19/17 Ibuprofen [Motrin] 800 mg PO Q8HR PRN #30 tablet 11/17/17 11/20/17 1 Day Ago Rx ~11/19/17 Butalb/Acetaminophen/Caffeine 1 cap PO Q6HR PRN #30 cap 11/18/17 11/20/17 Unk nown Rx [Fioricet 50-300-40 mg CAP] Butalb/Acetaminophen/Caffeine 1 cap PO Q6HR PRN #30 cap 11/23/17 Unknown Rx [Fioricet 50-300-40 mg CAP] Active Meds: Active Medications Betamethasone Acet/Betameth SodPhos (Betamet Acet/Betamet Na Ph 6 Mg/Ml Inj 5 Ml Mdv) 12 mg IM Q24H RAE Stop: 02/15/22 01:01 Last Admin: 02/14/22 01:23 Dose: 12 mg Lactated Ringer's (Lactated Ringers) 1,000 mls @ 125 mls/hr IV DIRECT RAE Erythromycin Lactobionate 250 (mg/ Sodium Chloride) 100 mls @ 100 mls/hr IV Q6H RAE; Protocol Stop: 02/15/22 19:59 Last Admin: 02/14/22 06:49 Dose: 100 mls/hr Review of Systems All systems: negative Constitutional: fever Genitourinary: leakage of fluid - Vital Signs Vital signs: Vital Signs Pulse BP 71 114/66 02/13/22 13:21 02/13/22 13:21 Temp Pulse Resp BP Pulse Ox 97.7 F 86 16 108/63 98 02/14/22 08:06 02/14/22 09:45 02/14/22 08:06 02/14/22 08:16 02/14/22 09:45 - Physical Exam Breasts: Positive: deferred Cardiovascular: Regular rate, Normal S1, Normal S2 Lungs: Positive: Clear to auscultation, Normal air movement Abdomen: Positive: normal appearance, soft, normal bowel sounds, other (nontender) Genitourinary (Female): Positive: normal external genitalia, normal perenium Vulva: both: normal - Obstetrical Cervical Dilatation: 0 Results Result Diagrams: 02/14/22 05:59 Abnormal lab results 02/14/22 Range/Units 05:59 WBC 12.5 H (4.5-11.0) K/mm3 MCH 26 L (28-32) pg Plt Count 127 L (140-440) K/mm3 All other labs normal. Assessment and Plan IUP at 32 weeks with complaint of possible rupture of membranes and oligohydr amnios. Will admit patient for monitoring and observation. Patient will receive steroids x2. She will receive antibiotics x24 hours. We will repeat the TANVIR on tomorrow to see if there has been any change in the levels.
[2022-02-14 10:46] LABS: Basophils % (Manual) 0 % (0.0-1.8); Eosinophils % (Manual) 0 % (0.0-4.3); Total Cells Counted 100
[2022-02-14 10:48] LABS: Large Platelets Few; Platelet Estimate Consistent w Auto; RBC Morphology Normal
[2022-02-14] MEDS: LACTATED RINGERS 1,000 ML IV SCH (19:37)
[2022-02-15] MEDS: ERYTHROMYCIN LACTOBIONATE 250 MG in SODIUM CHLORIDE 0.9% 100 ML IV SCH ×2 (01:07→06:30)
[2022-02-15] MEDS: BETAMET ACET/BETAMET NA PH 6 MG/ML INJ 5 ML MDV IM SCH (01:07)
[2022-02-15] MEDS: LACTATED RINGERS 1,000 ML IV SCH (05:19)
[2022-02-15 07:24] VITALS: BP 102/58
--- NOTE | 2022-02-15 08:32 | Ultrasound Report ---
Limited OB ultrasound INDICATION: Low TANVIR FINDINGS: TANVIR measures 9.0 cm appears normal. Single live intrauterine in cephalic position . heart rate 1 29 bpm. IMPRESSION: TANVIR measures 9.0 cm within normal limits. Signer Name: Gustavo Mendoza MD Signed: 02/15/2022 8:28 AM Workstation Name: [id number]
--- NOTE | 2022-02-15 11:27 | Progress Note ---
Assessment and Plan Pt is 32 week IUP with low tanvir. Pt reports no further episodes of leaking actual fluid. Will plan to discharge on today now that TANVIR issue appears to be resolved. Pt advised to follow up in the office this week. Subjective - Subjective Interval history: Patient 26-year-old 3 para 2 who presented to triage with complaint of leaking of fluid. Patient was found to be febrile while in triage with a temperature of 101. IV fluids and Tylenol were given. An ultrasound was also ordered and the patient's TANVIR was found to be 4.4. This point decision was made to admit the patient for potential rupture of membranes and at least oligohydramnios. Patient states that she had her other 2 children prematurely. She is not sobeida. records are not available for review. 02/15/22- Ultrasound repeated this morning reveals TANVIR of 9.5 Patient reports: appetite normal, voiding normally, pain well controlled, ambulating normally Objective - Vital Signs Latest vital signs: Vital Signs Temp Pulse Resp BP BP Pulse Ox Pulse Ox 02/15/22 09:08 99 H 98 02/15/22 09:03 97 H 98 02/15/22 08:58 99 H 99 02/15/22 08:53 98 H 99 02/15/22 08:48 94 H 99 02/15/22 08:43 96 H 98 02/15/22 08:38 80 100 02/15/22 08:33 93 H 99 02/15/22 08:28 111 H 99 02/15/22 08:23 109 H 100 02/15/22 08:18 102 H 98 02/15/22 08:13 108 H 99 02/15/22 08:05 102 H 98 02/15/22 08:03 97.9 F 16 100 02/15/22 08:00 83 98 02/15/22 07:55 95 H 99 02/15/22 07:50 94 H 99 02/15/22 07:45 84 97 02/15/22 07:40 83 98 02/15/22 07:35 104 H 97 02/15/22 07:30 86 96 02/15/22 07:23 89 102/58 02/15/22 07:22 89 106/56 100 02/15/22 07:17 72 97 02/15/22 07:12 68 98 02/15/22 07:07 80 98 02/15/22 07:02 82 97 02/15/22 06:57 80 97 02/15/22 06:52 71 96 02/15/22 06:47 77 97 02/15/22 06:42 76 97 02/15/22 06:37 73 99 02/15/22 06:32 84 97 02/15/22 06:31 98.1 F 02/15/22 06:29 75 103/51 02/15/22 06:27 88 99 02/15/22 06:22 76 97 02/15/22 06:17 71 98 02/15/22 06:12 74 98 02/15/22 06:07 92 H 98 02/15/22 06:02 91 H 97 02/15/22 05:57 92 H 97 02/15/22 05:52 93 H 98 02/15/22 05:47 85 97 02/15/22 05:42 85 98 02/15/22 05:37 99 H 100 02/15/22 05:31 79 99 02/15/22 05:26 83 98 02/15/22 05:21 73 98 02/15/22 05:16 88 98 02/15/22 05:11 86 98 02/15/22 05:06 85 100 02/15/22 05:00 77 96 02/15/22 04:55 75 97 02/15/22 04:50 80 96 02/15/22 04:45 76 97 02/15/22 04:40 86 97 02/15/22 04:35 69 97 02/15/22 04:30 70 98 02/15/22 04:25 67 97 02/15/22 04:20 71 98 02/15/22 04:15 69 98 02/15/22 04:10 64 98 02/15/22 04:05 74 98 02/15/22 04:00 64 97 02/15/22 03:55 67 98 02/15/22 03:50 67 97 02/15/22 03:45 71 98 02/15/22 03:40 69 96 02/15/22 03:35 72 96 02/15/22 03:30 71 96 02/15/22 03:25 90 97 02/15/22 03:18 78 95 02/15/22 03:13 75 96 02/15/22 03:08 77 96 02/15/22 03:03 81 96 02/15/22 03:01 80 93 02/15/22 02:58 81 95 02/15/22 02:53 92 H 97 02/15/22 02:48 80 96 02/15/22 02:43 90 95 02/15/22 02:38 73 96 02/15/22 02:33 75 96 02/15/22 02:28 77 96 02/15/22 02:23 69 96 02/15/22 02:18 73 96 02/15/22 02:13 72 96 02/15/22 02:08 69 96 02/15/22 02:03 69 97 02/15/22 01:58 66 98 02/15/22 01:53 69 98 02/15/22 01:48 71 98 02/15/22 01:43 76 98 02/15/22 01:38 74 99 02/15/22 01:33 79 99 02/15/22 01:28 77 99 02/15/22 01:23 76 100 02/15/22 01:10 84 98 02/15/22 01:05 76 98 02/15/22 01:00 72 96 02/15/22 00:55 63 97 02/15/22 00:50 67 97 02/15/22 00:45 79 98 02/15/22 00:40 74 97 02/15/22 00:35 72 97 02/15/22 00:30 72 97 02/15/22 00:25 72 97 02/15/22 00:20 69 96 02/15/22 00:15 71 97 02/15/22 00:10 67 97 02/15/22 00:05 71 97 02/15/22 00:00 97.8 F 85 106/55 98 02/14/22 23:55 68 97 02/14/22 23:50 72 97 02/14/22 23:45 71 97 02/14/22 23:40 72 97 02/14/22 23:35 72 97 02/14/22 23:30 74 97 02/14/22 23:25 77 97 02/14/22 23:20 76 97 02/14/22 23:15 87 97 02/14/22 23:10 104 H 100 02/14/22 23:02 86 98 06/18/22 22:57 114 H 100 02/1422 22:52 81 99 061822 22:47 83 98 061822 22:42 89 98 061822 22:37 94 H 98 061822 22:32 90 98 061822 22:27 100 H 99 1822 22:22 89 99 061822 22:17 89 99 061822 22:12 86 98 061822 22:07 90 99 061822 22:02 87 99 061822 21:57 89 99 061822 21:52 104 H 100 061822 21:44 97 H 100 1822 21:39 90 99 061822 21:34 91 H 99 1822 21:29 87 98 1822 21:24 89 98 1822 21:19 82 99 18 21:14 82 97 18 21:09 84 98 02/14/22 21:04 95 H 97 1822 20:59 102 H 98 1822 20:54 103 H 100 1822 20:49 107 H 100 1822 20:44 97 H 99 1822 20:39 104 H 98 18 20:34 98 H 99 1822 20:29 95 H 98 1822 20:24 92 H 98 1822 20:19 91 H 100 1822 20:14 95 H 99 1822 20:09 99 H 98 1822 20:04 95 H 100 1822 19:56 92 H 113/59 100 1822 19:55 100 1822 19:54 98.5 F 1822 19:51 80 99 18/22 19:46 88 99 1822 19:41 77 99 1822 19:36 81 99 1822 19:31 89 99 1822 19:26 93 H 100 1822 19:21 89 100 1822 19:16 91 H 99 1822 19:11 100 H 99 1822 19:06 98 H 99 02/14/22 19:01 90 97 02/14/22 18:56 84 98 02/14/22 18:51 83 99 02/14/22 18:46 102 H 99 02/14/22 18:41 83 97 02/14/22 18:36 82 96 02/14/22 18:31 79 97 02/14/22 18:26 78 98 02/14/22 18:21 95 H 99 02/14/22 18:16 105 H 99 02/14/22 18:11 91 H 98 02/14/22 18:06 84 98 02/14/22 18:01 82 98 02/14/22 17:56 80 98 02/14/22 17:52 80 119/67 02/14/22 17:51 81 99 02/14/22 12:47 105 H 107/57 98 02/14/22 12:45 97.9 F 95 H 16 107/57 98 Intake and Output 02/14/22 02/15/22 02/15/22 22:59 06:59 14:59 Intake Total 200 1100 Balance 200 1100 Intake: IV 200 1100 Erythromycin Lactobionate 200 100 250 mg In NaCl 0.9% 100 ml @ 100 mls/hr IV Q6H RAE Rx#:[id number] Lactated Ringers 1,000 ml 1000 @ 125 mls/hr IV DIRECT RAE Rx#:[id number]
--- NOTE | 2022-02-15 11:31 | Discharge Summary ---
Providers - Providers Date of Admission: 02/14/22 01:22 Date of discharge: 02/15/22 Attending physician: ALEXEY SHERMAN Primary care physician: ESCALATION ENGINEER Hospitalization Reason for admission: other (fever) complications: none Hospital course: unremarkable Condition at discharge: Good Disposition: 01 HOME / SELF CARE / HOMELESS Plan - Provider Discharge Summary Activity: no sex for 6 weeks Diet: routine Additional instructions: [] Smoking cessation referral if applicable(refer to patient education folder for contact #) [] Refer to [facility] Booklet Call your doctor immediately for: * Fever > 100.5 * Heavy vaginal bleeding ( >1 pad per hour) * Severe persistent headache * Shortness of breath * Reddened, hot, painful area to leg or breast * Drainage or odor from incision. * Keep incision clean and dry at all times and follow doctor's instructions regarding bathing/showering - Follow up plan Follow up: PRIMARY CARE, [Primary Care Provider] - 7 Days
== END 2022-02-15 10:00 | disposition home or self-care (01) | DRG 782 ==
LOC: APU 12:32 → TRG 12:32 → LD 02-14 01:22
PROVIDERS: ADMIT Obstetrics & Gynecology; ATTEND Obstetrics & Gynecology
DX: O41.03X0 Oligohydramnios, third trimester, not applicable or unspecified (principal); Z3A.32 32 weeks gestation of pregnancy; Z20.822 Contact with and (suspected) exposure to COVID-19
CPT/HCPCS: 36415; 76815; 76816; 76819; 84112; 85007; 85025; 86592; 86706; 86762; 86850; 86900; 86901; 87806; G0378; J0702; J1364; J2405; J7120; U0003

== ENCOUNTER 2022-02-19 11:19 | Outpatient (CLI) | payer MEDICAID ==
[2022-02-19] MEDS ORDERED: LACTATED RINGERS 1,000 ML IV ONE (11:50)
[2022-02-19 12:11] VITALS: BP 116/69
[2022-02-19 12:26] LABS: Bilirubin,Urine NEG (Negative); Blood,Urine NEG (Negative); Color,Urine Yellow (Yellow); Protein,Urine <15 mg/dL mg/dL (Negative); Urobilinogen,Urine < 2.0 mg/dL (<2.0)
[2022-02-19 12:28] LABS: Bacteria,Urine 1+ /HPF (Negative); RBC,Urine < 1.0 /HPF (0.0-6.0)
== END 2022-02-19 13:45 | disposition home or self-care (01) ==
LOC: TRG 11:19 → APU 11:33 → TRG 13:45
PROVIDERS: ATTEND Obstetrics & Gynecology
DX: Z34.93 Encounter for supervision of normal pregnancy, unspecified, third trimester (principal); Z3A.31 31 weeks gestation of pregnancy
CPT/HCPCS: 36415; 59025; 81001; 84112; 87086

== ENCOUNTER 2022-03-10 16:08 | Observation (INO) | payer MEDICAID ==
[2022-03-10] MEDS ORDERED: LACTATED RINGERS 500 ML IV ONE (16:45)
[2022-03-10 17:42] LABS: Bilirubin,Urine NEG (Negative); Blood,Urine NEG (Negative); Color,Urine Straw (Yellow); Protein,Urine <15 mg/dL mg/dL (Negative); Urobilinogen,Urine < 2.0 mg/dL (<2.0)
[2022-03-10 17:58] LABS: Bacteria,Urine 1+ /HPF (Negative); Mucus,Urine FEW /HPF
[2022-03-10] MEDS ORDERED: ACETAMINOPHEN 325 MG TAB PO PRN (19:57)
[2022-03-10] MEDS ORDERED: DOCUSATE SODIUM 100 MG CAP PO PRN (19:57)
[2022-03-10] MEDS ORDERED: AMPICILLIN/NS 2 GM/100 ML 2 GM/100 ML BAG IV ONE (19:57)
[2022-03-10] MEDS ORDERED: SIMETHICONE 80 MG CHEW TAB PO PRN (19:57)
[2022-03-10] MEDS ORDERED: ONDANSETRON 4 MG/2 ML INJ IV PRN (19:57)
[2022-03-10] MEDS ORDERED: SODIUM CHLORIDE NASAL SPRAY 44ML NS PRN (19:57)
[2022-03-10] MEDS ORDERED: LACTATED RINGERS 1,000 ML IV SCH (20:00)
[2022-03-10] MEDS ORDERED: BETAMET ACET/BETAMET NA PH 6 MG/ML INJ 5 ML MDV IM SCH (20:00)
--- NOTE | 2022-03-10 20:06 | History and Physical Report ---
History of Present Illness Date of examination: 03/10/22 Chief complaint: contractions History of present illness: Pt is a 26 year old MEENU 04/19/22 at 34w2w presents with contractions i ncreasing in strength and frequency. Her cervix is noted to be 1 cm. She denies vaginal bleeding or leakage of fluid. She has had care at [facility] since 10 wk with comanagement by [facility] complicated by history of two births (declined [place] injections), sickle cell trait, h/o preeclampsia, thrombocytopenia noted in December 2021 s/p heme referral. Pt had admission in January 2022 for questionable rupture of membranes and oligohydramnios. She received two doses of betamethasone at that time. 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 (remote from this ) Family/Genetic History: diabetes, cancer Social history: no significant social history - Obstetrical History Expected Date of Delivery: 04/19/22 Actual Gestation: 34 Week(s) 3 Day(s) : 4 Para: 3 Hx # Term Pregnancies: 1 Number of Pregnancies: 2 Spontaneous Abortions: 0 Induced : 0 Number of Living Children: 3 Medications and Allergies Allergies Allergy/AdvReac Type Severity Reaction Status Date / Time No Known Allergies Allergy Verified 12/06/15 16:04 Home Medications Medication Instructions Recorded Confirmed Last Taken Type NIFEdipine [Procardia] 10 mg PO BID 11/16/17 11/20/17 11/16/17 08:00 History 10 MG HYDROcodone/ACETAMINOPHEN [[place] 1 each PO Q6H PRN #20 tablet 11/17/17 11/20/17 1 Day Ago Rx 5-325 Tablet] ~11/19/17 Ibuprofen [Motrin] 800 mg PO Q8HR PRN #30 tablet 11/17/17 11/20/17 1 Day Ago Rx ~11/19/17 Butalb/Acetaminophen/Caffeine 1 cap PO Q6HR PRN #30 cap 11/18/17 11/20/17 Unknown Rx [Fioricet 50-300-40 mg CAP] Butalb/Acetaminophen/Caffeine 1 cap PO Q6HR PRN #30 cap 11/23/17 Unknown Rx [Fioricet 50-300-40 mg CAP] Active Meds: Active Medications Betamethasone Acet/Betameth SodPhos (Betamet Acet/Betamet Na Ph 6 Mg/Ml Inj 5 Ml Mdv) 12 mg IM Q24HR RAE Review of Systems All systems: negative - Vital Signs Vital signs: Vital Signs Pulse BP 97 H 137/85 03/10/22 16:38 03/10/22 16:38 Temp Pulse Resp BP Pulse Ox 90 127/79 100 03/10/22 20:00 03/10/22 18:52 03/10/22 20:00 - Physical Exam Breasts: Positive: deferred Abdomen: Positive: soft (gravid ) Uterus: Positive: enlarged (gravid ) Extremities: Positive: normal - Obstetrical FHR: auscultation normal Uterine Contraction Monitor Mode: External Cervical Dilatation: 1 Cervical Effacement Percentage: 50 station: -3 Uterine Contraction Pattern: Regular Uterine Tone Measurement Phase: Resting Uterine Contraction Intensity: Moderate Results Result Diagrams: 03/10/22 21:20 Abnormal lab results 03/10/22 Range/Units Unknown Urine pH 8.0 H (5.0-7.0) All other labs normal. Assessment and Plan A: IUP at 34w2d Contractions H/o delivery x 2 Thrombocytopenia H/o preeclampsia Sickle Cell Trait GBS unknown P: Admit to labor and delivery for observation Continuous monitoring Rescue dose of betamethasone Ampicillin for GBS prophylaxis Serial cervical checks Closely monitor maternal and status
[2022-03-10 21:35] LABS: Basophils % (Auto) 0.2 % (0.0-1.8); Eosinophils % (Auto) 0.6 % (0.0-4.3); Hematocrit 34.2 % (30.3-42.9); Hemoglobin 11.2 gm/dl (10.1-14.3); Lymphocytes # (Auto) 1.2 K/mm3 (1.2-5.4); Mean Corpuscular HGB Conc 33 % (30-34); Mean Corpuscular Volume 78 fl (79-97); Monocytes # (Auto) 0.6 K/mm3 (0.0-0.8); Platelet Count 136 K/mm3 (140-440); Red Blood Count 4.39 M/mm3 (3.65-5.03); Red Cell Distribution Width 14.4 % (13.2-15.2)
[2022-03-11] MEDS: AMPICILLIN/NS 1 GM/50 ML 1 GM/50 ML BAG IV SCH ×2 (00:17→04:37)
[2022-03-11] MEDS ORDERED: BUTORPHANOL 2 MG/1 ML INJ IV PRN (06:50)
--- NOTE | 2022-03-11 08:34 | Progress Note ---
Assessment and Plan A: IUP at 34w3d Labor H/o delivery x 2 Thrombocytopenia H/o preeclampsia Sickle Cell Trait GBS unknown P: Continue observation at this time Closely monitor maternal and status Subjective - Subjective Date of service: 03/11/22 Principal diagnosis: IUP at 34w3d, Labor Interval history: Since admission, pt's contractions have continued and her cervix has changed to 4 cm. She reports brown discharge when she wipes. No leakage of fluid or vaginal bleeding. Patient reports: contractions, no new complaints, no loss of fluid, no vaginal bleeding Objective - Vital Signs Vital Signs: Vital Signs - 12hr 03/10/22 03/10/22 03/10/22 20:35 20:40 20:53 Pulse Rate 77 84 83 Blood Pressure O2 Sat by Pulse 100 100 97 Oximetry 03/10/22 03/10/22 03/10/22 20:58 21:03 21:08 Pulse Rate 86 85 83 Blood Pressure O2 Sat by Pulse 100 100 100 Oximetry 03/10/22 03/10/22 03/10/22 21:13 21:18 21:23 Pulse Rate 85 98 H 99 H Blood Pressure O2 Sat by Pulse 100 100 99 Oximetry 03/10/22 03/10/22 03/10/22 21:28 21:33 21:38 Pulse Rate 92 H 83 83 Blood Pressure O2 Sat by Pulse 100 100 100 Oximetry 03/10/22 03/10/22 03/10/22 21:43 21:48 21:53 Pulse Rate 95 H 94 H 91 H Blood Pressure O2 Sat by Pulse 100 99 99 Oximetry 03/10/22 03/10/22 03/10/22 21:57 21:58 22:03 Pulse Rate 86 81 85 Blood Pressure 130/80 O2 Sat by Pulse 99 99 Oximetry 03/10/22 03/10/22 03/10/22 22:08 22:13 22:18 Pulse Rate 87 84 77 Blood Pressure O2 Sat by Pulse 99 100 99 Oximetry 03/10/22 03/10/22 03/10/22 22:23 22:28 22:33 Pulse Rate 92 H 94 H 86 Blood Pressure O2 Sat by Pulse 99 98 100 Oximetry 03/10/22 03/10/22 03/10/22 22:38 22:43 22:48 Pulse Rate 91 H 93 H 82 Blood Pressure O2 Sat by Pulse 100 100 100 Oximetry 03/10/22 03/10/22 03/10/22 22:53 22:57 22:58 Pulse Rate 90 81 95 H Blood Pressure 123/69 O2 Sat by Pulse 98 98 Oximetry 03/10/22 03/10/22 03/10/22 23:03 23:08 23:13 Pulse Rate 84 81 91 H Blood Pressure O2 Sat by Pulse 99 98 98 Oximetry 03/10/22 03/10/22 03/10/22 23:18 23:23 23:28 Pulse Rate 79 82 80 Blood Pressure O2 Sat by Pulse 98 99 99 Oximetry 03/10/22 03/10/22 03/10/22 23:33 23:38 23:43 Pulse Rate 69 77 88 Blood Pressure O2 Sat by Pulse 98 98 99 Oximetry 03/10/22 03/10/22 03/10/22 23:48 23:53 23:56 Pulse Rate 71 83 80 Blood Pressure 134/71 O2 Sat by Pulse 98 99 Oximetry 03/10/22 03/11/22 03/11/22 23:58 00:03 00:08 Pulse Rate 76 94 H 82 Blood Pressure O2 Sat by Pulse 98 97 97 Oximetry 03/11/22 03/11/22 03/11/22 00:13 00:21 00:26 Pulse Rate 81 83 75 Blood Pressure O2 Sat by Pulse 97 99 100 Oximetry 03/11/22 03/11/22 03/11/22 00:31 00:36 00:41 Pulse Rate 77 73 78 Blood Pressure O2 Sat by Pulse 99 99 98 Oximetry 03/11/22 03/11/22 03/11/22 00:46 00:51 00:56 Pulse Rate 85 72 71 Blood Pressure O2 Sat by Pulse 98 98 99 Oximetry 03/11/22 03/11/22 03/11/22 00:58 01:01 01:06 Pulse Rate 73 78 77 Blood Pressure 125/66 O2 Sat by Pulse 99 98 Oximetry 03/11/22 03/11/22 03/11/22 01:11 01:16 01:21 Pulse Rate 96 H 72 89 Blood Pressure O2 Sat by Pulse 98 98 98 Oximetry 03/11/22 03/11/22 03/11/22 01:26 01:31 01:36 Pulse Rate 76 79 67 Blood Pressure O2 Sat by Pulse 99 98 99 Oximetry 03/11/22 03/11/2222 01:41 01:46 01:51 Pulse Rate 76 73 75 Blood Pressure O2 Sat by Pulse 99 99 98 Oximetry 03/11/22 03/11/22 03/11/22 01:56 02:01 02:06 Pulse Rate 89 80 73 Blood Pressure O2 Sat by Pulse 99 99 98 Oximetry 03/11/22 03/11/22 03/11/22 02:11 02:16 02:21 Pulse Rate 73 70 71 Blood Pressure O2 Sat by Pulse 98 98 97 Oximetry 03/11/22 03/11/22 03/11/22 02:26 02:31 02:36 Pulse Rate 71 71 73 Blood Pressure O2 Sat by Pulse 97 97 97 Oximetry 03/11/22 03/11/22 03/11/22 02:41 02:46 02:51 Pulse Rate 75 78 74 Blood Pressure O2 Sat by Pulse 99 98 98 Oximetry 03/11/22 03/11/22 03/11/22 02:56 03:01 03:06 Pulse Rate 67 99 H 71 Blood Pressure 114/58 O2 Sat by Pulse 97 98 97 Oximetry 03/11/22 03/11/22 03/11/22 03:11 03:16 03:21 Pulse Rate 71 72 77 Blood Pressure O2 Sat by Pulse 98 97 96 Oximetry 03/11/22 03/11/22 03/11/22 03:26 03:31 03:36 Pulse Rate 77 75 73 Blood Pressure O2 Sat by Pulse 97 98 98 Oximetry 03/11/22 03/11/22 03/11/22 03:41 03:46 03:51 Pulse Rate 75 73 87 Blood Pressure O2 Sat by Pulse 97 98 97 Oximetry 03/11/22 03/11/22 03/11/22 04:06 04:11 04:16 Pulse Rate 96 H 83 76 Blood Pressure O2 Sat by Pulse 100 99 100 Oximetry 03/11/22 03/11/22 03/11/22 04:21 04:26 04:31 Pulse Rate 89 80 90 Blood Pressure O2 Sat by Pulse 99 99 100 Oximetry 03/11/22 03/11/22 03/11/22 04:36 04:40 04:41 Pulse Rate 84 81 73 Blood Pressure 121/60 O2 Sat by Pulse 100 99 Oximetry 03/11/22 03/11/22 03/11/22 04:46 04:51 04:56 Pulse Rate 75 79 75 Blood Pressure O2 Sat by Pulse 98 98 99 Oximetry 03/11/22 03/11/22 03/11/22 04:57 05:01 05:06 Pulse Rate 80 89 78 Blood Pressure 122/62 O2 Sat by Pulse 99 99 Oximetry 03/11/22 03/11/22 03/11/22 05:11 05:16 05:21 Pulse Rate 77 79 79 Blood Pressure O2 Sat by Pulse 99 98 98 Oximetry 03/11/22 03/11/22 03/11/22 05:28 05:33 05:38 Pulse Rate 95 H 80 78 Blood Pressure O2 Sat by Pulse 98 99 99 Oximetry 03/11/22 03/11/22 03/11/22 05:43 05:48 05:53 Pulse Rate 81 95 H 77 Blood Pressure O2 Sat by Pulse 98 98 98 Oximetry 03/11/22 03/11/22 03/11/22 05:56 05:58 06:03 Pulse Rate 78 86 93 H Blood Pressure 105/55 O2 Sat by Pulse 99 99 Oximetry 03/11/22 03/11/22 03/11/22 06:08 06:13 06:18 Pulse Rate 80 83 85 Blood Pressure O2 Sat by Pulse 98 98 98 Oximetry 03/11/22 03/11/22 03/11/22 06:23 06:28 06:33 Pulse Rate 95 H 80 81 Blood Pressure O2 Sat by Pulse 98 98 98 Oximetry 03/11/22 03/11/22 03/11/22 06:38 06:43 06:48 Pulse Rate 73 76 77 Blood Pressure O2 Sat by Pulse 99 100 99 Oximetry 03/11/22 03/11/22 03/11/22 06:54 06:56 06:59 Pulse Rate 96 H 85 84 Blood Pressure 119/66 O2 Sat by Pulse 100 99 Oximetry 03/11/22 03/11/22 03/11/22 07:04 07:09 07:14 Pulse Rate 72 77 86 Blood Pressure O2 Sat by Pulse 100 99 99 Oximetry 03/11/22 03/11/22 03/11/22 07:19 07:24 07:29 Pulse Rate 83 89 101 H Blood Pressure O2 Sat by Pulse 99 99 99 Oximetry 03/11/22 03/11/22 03/11/22 07:34 07:39 07:44 Pulse Rate 85 87 82 Blood Pressure O2 Sat by Pulse 99 99 99 Oximetry 03/11/22 03/11/22 03/11/22 07:49 07:54 07:57 Pulse Rate 89 95 H 92 H Blood Pressure 122/58 O2 Sat by Pulse 99 99 Oximetry 03/11/22 07:59 Pulse Rate 97 H Blood Pressure O2 Sat by Pulse 99 Oximetry - Exam Breasts: deferred Abdomen: Present: soft (gravid ) Uterus: Present: normal (gravid ) FHR: auscultation normal Uterine Contraction Monitor Mode: External Cervical Dilatation: 4 Cervical Effacement Percentage: 60 station: -3 Uterine Contraction Pattern: Irregular Uterine Tone Measurement Phase: Resting Uterine Contraction Intensity: Mild Extremities: normal - Labs Labs: Abnormal Labs 03/10/22 03/10/22 21:20 Unknown MCV 78 L MCH 26 L Plt Count 136 L [place] % (Auto) 8.0 H Seg Neutrophils % 74.2 H Urine pH 8.0 H Laboratory Results - last 24 hr 03/10/22 03/10/22 03/10/22 21:20 21:20 Unknown WBC 7.3 RBC 4.39 Hgb 11.2 Hct 34.2 MCV 78 L MCH 26 L MCHC 33 RDW 14.4 Plt Count 136 L Lymph % (Auto) 17.0 [place] % (Auto) 8.0 H Eos % (Auto) 0.6 Baso % (Auto) 0.2 Lymph # (Auto) 1.2 [place] # (Auto) 0.6 Eos # (Auto) 0.0 Baso # (Auto) 0.0 Seg Neutrophils % 74.2 H Seg Neutrophils # 5.4 Urine Color Straw Urine Turbidity Clear Urine pH 8.0 H Ur Specific [place] 1.004 Urine Protein <15 mg/dl Urine Glucose (UA) Neg Urine Ketones Neg Urine Blood Neg Urine Nitrite Neg Urine Bilirubin Neg Urine Urobilinogen < 2.0 Ur Leukocyte Esterase Neg Urine WBC (Auto) 3.0 Urine RBC (Auto) 12.0 U Epithel Cells (Auto) 5.0 Urine Bacteria (Auto) 1+ Urine Mucus Few Blood Type B POSITIVE Antibody Screen Negative
[2022-03-11] MEDS ORDERED: PRENATAL VIT27-FE FUMARATE-FOLIC ACID VIT TAB PO SCH (10:00)
[2022-03-11 14:58] VITALS: BP 118/68
--- NOTE | 2022-03-11 15:23 | Event Note ---
Date: 03/11/22 Pt has irritability but fewer than one contraction per hour. Her cervix was rechecked by the RN and noted to be unchanged, indicating no cervical change management manager the past 12 hours. Plan to discharge home with labor precautions with follow up in 5 days as previously scheduled.
--- NOTE | 2022-03-11 15:28 | Short Stay Summary ---
Short Stay Documentation Date of service: 03/11/22 - History H&P: dictated Past Surgical History: No surgical history Social history: no significant social history - Allergies and Medications Current Medications: Allergies No Known Allergies Allergy (Verified 12/06/15 16:04) Home Medications Medication Instructions Recorded Confirmed Last Taken Type NIFEdipine [Procardia] 10 mg PO BID 11/16/17 11/20/17 11/16/17 08:00 History 10 MG HYDROcodone/ACETAMINOPHEN [[place] 1 each PO Q6H PRN #20 tablet 11/17/17 11/20/17 1 Day Ago Rx 5-325 Tablet] ~11/19/17 Ibuprofen [Motrin] 800 mg PO Q8HR PRN #30 tablet 11/17/17 11/20/17 1 Day Ago Rx ~11/19/17 Butalb/Acetaminophen/Caffeine 1 cap PO Q6HR PRN #30 cap 11/18/17 11/20/17 Unknown Rx [Fioricet 50-300-40 mg CAP] Butalb/Acetaminophen/Caffeine 1 cap PO Q6HR PRN #30 cap 11/23/17 Unknown Rx [Fioricet 50-300-40 mg CAP] Active Medications Acetaminophen (Acetaminophen 325 Mg Tab) 650 mg PO Q4H PRN PRN Reason: Pain MILD(1-3)/Fever >100.5/RODRIGUEZ Betamethasone Acet/Betameth SodPhos (Betamet Acet/Betamet Na Ph 6 Mg/Ml Inj 5 Ml Mdv) 12 mg IM Q24HR RAE Last Admin: 03/10/22 20:14 Dose: 12 mg Butorphanol Tartrate (Butorphanol 2 Mg/1 Ml Inj) 1 mg IV Q2H PRN PRN Reason: Labor Pain Docusate Sodium (Docusate Sodium 100 Mg Cap) 100 mg PO Q12H PRN PRN Reason: Constipation Lactated Ringer's (Lactated Ringers) 1,000 mls @ 125 mls/hr IV DIRECT RAE Ampicillin Sodium (Ampicillin/Ns 1 Gm/50 Ml) 1 gm in 50 mls @ 100 mls/hr IV Q4H RAE; Protocol Last Admin: 03/11/22 04:37 Dose: 100 mls/hr Multivitamins/Iron/Calcium ( [id number]-Mo Fumarate-Folic Acid Vit Tab) 1 each PO QDAY RAE Ondansetron HCl (Ondansetron 4 Mg/2 Ml Inj) 4 mg IV Q6H PRN PRN Reason: Nausea And Vomiting Simethicone (Simethicone 80 Mg Chew Tab) 80 mg PO Q6H PRN PRN Reason: Gas pain Sodium Chloride (Sodium Chloride Nasal [place] 44ml) 2 spray NS Q4H PRN PRN Reason: Congestion - Physical exam Breasts: deferred - Hospital course Hospital course: Patient was admitted with regular painful contract since. During her hospitalization change from 1 cm to 4 cm where she arrested for over 12 hours. She was given 1 dose of betamethasone as a rescue dose after previously receiving a standard 2 g betamethasone course. She also received ampicillin for GBS prophylaxis during her observation. After resting a 4 cm for over 12 hours the decision was made to discharge the patient home with pelvic rest and labor precautions. She will follow-up in the office as scheduled next week. - Disposition Condition at discharge: Stable Disposition: 01 HOME / SELF CARE / HOMELESS - Discharge Diagnoses (1) labor in third trimester Status: Acute Qualifiers: labor delivery status: without delivery Qualified Code(s): O60.03 - labor without delivery, third trimester (2) Thrombocytopenia affecting Status: Acute Short Stay Discharge Plan Activity: other (No interocurse ) Weight Bearing Status: Full Weight Bearing Diet: regular Follow up with: YAJAIRA TAN MD [Primary Care Provider] - 7 Days
[2022-03-11] MEDS ORDERED: hydrALAZINE 20 MG/1 ML INJ IV NR (16:15)
== END 2022-03-11 21:00 | disposition home or self-care (01) ==
LOC: TRG 16:08 → APU 16:10 → LD 18:37 → TRG 19:58 → LD 19:58
PROVIDERS: ADMIT Obstetrics & Gynecology; ATTEND Obstetrics & Gynecology
DX: O62.9 Abnormality of forces of labor, unspecified (principal); Z20.822 Contact with and (suspected) exposure to COVID-19; O99.013 Anemia complicating pregnancy, third trimester; D57.3 Sickle-cell trait; O60.03 Preterm labor without delivery, third trimester; O99.113 Other diseases of the blood and blood-forming organs and certain disorders involving the immune mechanism complicating pregnancy, third trimester; D69.6 Thrombocytopenia, unspecified; Z3A.34 34 weeks gestation of pregnancy
CPT/HCPCS: 36415; 81001; 85025; 86850; 86900; 86901; 96365; 96366; 96372; G0378; G0379; J0290; J0702; J7120; U0003

== ENCOUNTER 2022-03-17 16:22 | Outpatient (CLI) | payer MEDICAID ==
[2022-03-17 18:05] VITALS: BP 118/72
== END 2022-03-17 18:14 | disposition home or self-care (01) ==
LOC: TRG 16:22 → APU 16:25 → TRG 18:14
PROVIDERS: ATTEND Obstetrics & Gynecology
DX: O26.853 Spotting complicating pregnancy, third trimester (principal); Z3A.35 35 weeks gestation of pregnancy
CPT/HCPCS: 59025

== ENCOUNTER 2022-03-23 11:55 | Outpatient (CLI) | payer MEDICAID ==
[2022-03-23] MEDS ORDERED: LACTATED RINGERS 500 ML IV ONE (13:01)
[2022-03-23] MEDS ORDERED: BUTALB/ACETAMINOPHEN/CAFFEINE TAB PO PRN (14:06)
[2022-03-23 14:08] LABS: Alanine Aminotransferase 10 units/L (7-56)
[2022-03-23 14:29] LABS: Hematocrit 33.5 % (30.3-42.9); Hemoglobin 11.2 gm/dl (10.1-14.3); Mean Corpuscular HGB Conc 33 % (30-34); Mean Corpuscular Volume 77 fl (79-97); Platelet Count 137 K/mm3 (140-440); Red Blood Count 4.33 M/mm3 (3.65-5.03); Red Cell Distribution Width 15.3 % (13.2-15.2)
[2022-03-23 14:58] LABS: Bacteria,Urine 1+ /HPF (Negative)
[2022-03-23 15:06] LABS: Color,Urine Straw (Yellow)
[2022-03-23 15:07] LABS: Bilirubin,Urine Negative (Negative)
[2022-03-23 15:08] LABS: Blood,Urine Negative (Negative); Protein,Urine <15 mg/dL mg/dL (Negative); Urobilinogen,Urine < 2.0 mg/dL (<2.0)
[2022-03-23 16:05] VITALS: BP 104/59
== END 2022-03-23 16:11 | disposition home or self-care (01) ==
LOC: TRG 11:55 → APU 11:56 → TRG 16:11
PROVIDERS: ATTEND Obstetrics & Gynecology
DX: O13.3 Gestational [pregnancy-induced] hypertension without significant proteinuria, third trimester (principal); Z3A.36 36 weeks gestation of pregnancy
CPT/HCPCS: 36415; 59025; 81001; 82565; 83615; 84450; 84460; 84550; 85027; J7120

== ENCOUNTER 2022-03-27 08:40 | Outpatient (CLI) | payer MEDICAID ==
[2022-03-27 09:03] VITALS: BP 135/90
[2022-03-27] MEDS ORDERED: LACTATED RINGERS 500 ML IV ONE (09:29)
== END 2022-03-27 10:35 | disposition home or self-care (01) ==
LOC: TRG 08:40 → APU 08:41 → TRG 10:35
PROVIDERS: ATTEND Obstetrics & Gynecology
DX: O47.03 False labor before 37 completed weeks of gestation, third trimester (principal); Z3A.36 36 weeks gestation of pregnancy
CPT/HCPCS: 36415; 59025; 84112

== ENCOUNTER 2022-03-27 11:33 | Inpatient (IN) | payer MEDICAID ==
[2022-03-27] MEDS ORDERED: LACTATED RINGERS 1,000 ML ONE (11:46)
[2022-03-27] MEDS ORDERED: METHYLERGONOVINE MALEATE 0.2 MG/ML VIAL IM PRN (11:57)
[2022-03-27] MEDS ORDERED: OXYTOCIN 10 UNIT/1 ML INJ IM PRN (11:57)
[2022-03-27] MEDS ORDERED: TERBUTALINE 1 MG/1 ML INJ SUB-Q PRN (11:57)
[2022-03-27] MEDS ORDERED: LIDOCAINE (2%) 20 MG/1 ML VIAL 20 ML MDV INFILTRATI NR (11:57)
[2022-03-27] MEDS ORDERED: LOPERAMIDE 2 MG CAP PO PRN (11:57)
[2022-03-27] MEDS ORDERED: miSOPROStol 200 MCG TAB PR PRN (11:57)
[2022-03-27] MEDS ORDERED: LACTATED RINGERS 1,000 ML IV SCH (12:00)
[2022-03-27 12:12] LABS: Hematocrit 35.8 % (30.3-42.9); Hemoglobin 12.2 gm/dl (10.1-14.3); Mean Corpuscular HGB Conc 34 % (30-34); Mean Corpuscular Volume 76 fl (79-97); Red Blood Count 4.71 M/mm3 (3.65-5.03); Red Cell Distribution Width 15.7 % (13.2-15.2)
[2022-03-27 12:31] LABS: Platelet Count 138 K/mm3 (140-440)
[2022-03-27] MEDS ORDERED: ePHEDrine SULFATE 50 MG/1 ML INJ IV PRN ×2 (13:00→15:00)
[2022-03-27] MEDS ORDERED: OXYTOCIN DRIP 30 UNITS/500 ML BAG IV SCH ×2 (13:00)
[2022-03-27] MEDS ORDERED: CARBOPROST TROMETHAMINE 250 MCG/1 ML INJ IM PRN (13:00)
[2022-03-27] MEDS ORDERED: BUTORPHANOL 2 MG/1 ML INJ IV PRN ×2 (13:00)
[2022-03-27] MEDS ORDERED: ACETAMINOPHEN 325 MG TAB PO PRN ×2 (13:00→17:57)
[2022-03-27] MEDS ORDERED: fentaNYL 100 MCG/2 ML INJ IV PRN (13:00)
[2022-03-27] MEDS ORDERED: NALOXONE 0.4 MG/1 ML INJ IV PRN (14:13)
--- NOTE | 2022-03-27 14:13 | Anesthesia Consultation ---
Anesthesia Consult and Med Hx Date of service: 03/27/22 - Airway Anesthetic Teeth Evaluation: Poor ROM Head & Neck: Adequate Mental/Hyoid Distance: Adequate Mallampati Class: Class II Intubation Access Assessment: Probably Good - Pulmonary Exam CTA: Yes - Cardiac Exam Cardiac Exam: RRR - Pre-Operative Health Status ASA Pre-Surgery Classification: ASA2 Proposed Anesthetic Plan: Epidural - Pulmonary Hx Smoking: No Hx Asthma: No COPD: No Hx Pneumonia: No - Cardiovascular System Hx Hypertension: No - Central Nervous System Hx Seizures: No Hx Psychiatric Problems: No - Endocrine Hx Renal Disease: No Hx End Stage Renal Disease: No Hx Hypothyroidism: No Hx Hyperthyroidism: No - Hematic Hx Anemia: No Hx Sickle Cell Disease: No - Other Systems Hx Alcohol Use: No Hx Substance Use: No Hx Obesity: Yes
--- NOTE | 2022-03-27 14:51 | Progress Note ---
Labor Epidural - Labor Epidural Start Time: 14:24 Stop Time: 14:29 Performed by:: NALLELY MOORE Procedure: Patient is requesting epidural for labor pain. H&P and labs reviewed. Procedure explained, questions answered, consent obtained. Patient placed in sitting position with monitors applied. Timeout performed immediately before start of procedure. Prep/drape in usual sterile fashion. Skin localized 3 mL 1% lidocaine at L[3]-L[4] interspace. 17-gauge Touhy epidural needle advanced to REGINO with saline at [8] cm. No blood/CSF noted via epidural needle [id number]. Epidural catheter advanced to [12] cm. Negative aspiration for blood and CSF via catheter, negative response to test dose 3 ml 1.5% lidocaine w/ Epi. Sterile dressing applied followed by tape reinforcement. Patient tolerated procedure well. No immediate complications noted.
[2022-03-27] MEDS ORDERED: fentaNYL-BUPIV 2 MCG/ML-0.125% 200 MCG/100 ML BAG EPIDURAL SCH (15:00)
--- NOTE | 2022-03-27 15:02 | Procedure Note ---
OB Delivery Note - Delivery Date of Delivery: 03/27/22 Surgeon: ROSAMARIA DERAS Estimated blood loss: 300cc - Vaginal Delivery presentation: vertex Delivery position: OA Intrapartum events: PROM->1hr before delivery, uterine atony (treated with cytotec 800mcg per rectum and IV pitocin) Delivery induction: none Delivery monitor: external FHT, external uterine Route of delivery: Delivery placenta: spontaneous Delivery cord: 3 umbilical vessels Episiotomy: none Delivery laceration: none Anesthesia: epidural Delivery comments: Called to room for pt SROM, complete and pushing. Pt evaluated and complete with fetus at +3 station. Pt told that her doctor Dr. Garcia asked me to step in until she arrives and pt agreeable. SAVD of viable male , nuchal cords x2 reduced without difficulty and wt 2660g; sustained no lacerations to perineum, vagina or cervix. Pt with heavy vag bleed and uterine atony. Same treated with IV pitocin and cytotec 800mcg per rectum. Bimanual exam done and fundus now firm. Mom and baby stable. - Infant A at 1 minute: 8 at 5 minutes: 9 Infant Gender: Male (wt 2660g, clear fluid)
[2022-03-27] MEDS ORDERED: MAGNESIUM HYDROXIDE (MOM) ORAL LIQD UDC PO PRN (17:57)
[2022-03-27] MEDS ORDERED: diphenhydrAMINE 25 MG CAP PO PRN (17:57)
[2022-03-27] MEDS ORDERED: LANOLIN/ZINC/DIMETHICONE (LANSINOH) 7 GM TP PRN (17:57)
[2022-03-27] MEDS ORDERED: oxyCODONE /ACETAMINOPHEN 5-325MG TAB PO PRN (17:57)
[2022-03-27] MEDS ORDERED: WITCH HAZEL/ GLYCERIN PAD TP PRN (17:57)
[2022-03-27] MEDS ORDERED: ONDANSETRON 4 MG/2 ML INJ IV PRN (17:57)
[2022-03-27] MEDS ORDERED: PROMETHAZINE 25 MG RECT SUPP PR PRN (17:57)
[2022-03-27] MEDS ORDERED: PROMETHAZINE 25 MG TAB PO PRN (17:57)
[2022-03-27] MEDS: IBUPROFEN 800 MG TAB PO SCH ×2 (18:12→23:09)
[2022-03-27] MEDS ORDERED: MINERAL OIL 30 ML ORAL LIQD PO PRN (22:00)
[2022-03-27] MEDS: DOCUSATE SODIUM 100 MG CAP PO SCH (23:09)
[2022-03-28 05:41] LABS: Hematocrit 30.6 % (30.3-42.9); Hemoglobin 10.2 gm/dl (10.1-14.3)
[2022-03-28] MEDS: IBUPROFEN 800 MG TAB PO SCH ×3 (06:26→22:40)
--- NOTE | 2022-03-28 10:20 | History and Physical Report ---
History of Present Illness Date of examination: 03/28/22 Date of admission: 03/27/22 11:34 Chief complaint: Contractions History of present illness: 26-year-old -2-0-3 at 36 and 6 weeks who presents in active labor with advanced cervical dilatation. The patient had denied leakage of fluid. At the time of presentation the patient had a cervical exam of 5 cm with regular uterine contractions. She has a history of 2 prior deliveries. She initiated her care in the first trimester. Her course is complicated by history of subchorionic hemorrhage. Past History Past Medical History: no pertinent history Past Surgical History: no surgical history Social history: single - Obstetrical History Expected Date of Delivery: 04/19/22 Actual Gestation: 36 Week(s) 6 Day(s) : 4 Para: 3 Hx # Term Pregnancies: 1 Number of Pregnancies: 2 Spontaneous Abortions: 0 Induced : 0 Number of Living Children: 3 Medications and Allergies Allergies Allergy/AdvReac Type Severity Reaction Status Date / Time No Known Allergies Allergy Verified 03/17/22 17:28 Home Medications Medication Instructions Recorded Confirmed Last Taken Type Vit-Fe Fumar-FA [ 1 tab PO QDAY 03/17/22 03/28/22 03/17/22 History Vitamin] Butalb/Acetaminophen/Caffeine 1 cap PO Q6HR PRN #30 cap 03/23/22 03/28/22 Unknown Rx [Fioricet 50-300-40 mg CAP] Active Meds: Active Medications Acetaminophen (Acetaminophen 325 Mg Tab) 650 mg PO Q4H PRN PRN Reason: Pain MILD(1-3)/Fever >100.5/RODRIGUEZ Bisacodyl (Bisacodyl 10 Mg Rect Supp) 10 mg [place] BID PRN PRN Reason: Constipation Carboprost Tromethamine (Carboprost Tromethamine 250 Mcg/1 Ml Inj) 250 mcg IM ONCE PRN PRN Reason: Uterine Bleeding Diphenhydramine HCl (Diphenhydramine 25 Mg Cap) 25 mg PO Q6H PRN PRN Reason: Itching Docusate Sodium (Docusate Sodium 100 Mg Cap) 100 mg PO BID RAE Last Admin: 03/27/22 23:09 Dose: 100 mg Oxytocin/Sodium Chloride (Pitocin/Ns 30 Unit/500ml) 30 units in 500 mls @ 2 mls/hr IV TITR RAE; Protocol Lactated Ringer's (Lactated Ringers) 1,000 mls @ 125 mls/hr IV DIRECT RAE Oxytocin/Sodium Chloride (Pitocin/Ns 30 Unit/500ml) 30 units in 500 mls @ 40 mls/hr IV TITR RAE; Protocol Last Admin: 03/27/22 14:59 Dose: 40 ml/hr, 40 mls/hr Ibuprofen (Ibuprofen 800 Mg Tab) 800 mg PO Q6H [facility] Last Admin: 03/28/22 06:26 Dose: 800 mg Loperamide HCl (Loperamide 2 Mg Cap) 2 mg PO ONCE PRN PRN Reason: give with Hemabate Magnesium Hydroxide (Magnesium Hydroxide (Mom) Oral Liqd Udc) 30 ml PO HS PRN PRN Reason: Constipation Methylergonovine Maleate (Methylergonovine Maleate 0.2 Mg/Ml Vial) 0.2 mg IM ONCE PRN PRN Reason: Uterine Bleeding Mineral Oil (Mineral Oil 30 Ml Oral Liqd) 30 ml PO QHS PRN PRN Reason: Constipation Multi-Ingredient Ointment (Lanolin/Zinc/Dimethicone (Lansinoh) 7 Gm) 1 applic TP PRN PRN PRN Reason: Sore Nipples Ondansetron HCl (Ondansetron 4 Mg/2 Ml Inj) 4 mg IV Q8H PRN PRN Reason: Nausea And Vomiting Oxycodone/Acetaminophen (Oxycodone /Acetaminophen 5-325mg Tab) 2 tab PO Q4H PRN PRN Reason: Pain, Moderate (4-6) Oxytocin (Oxytocin 10 Unit/1 Ml Inj) 10 unit IM ONCE PRN PRN Reason: Uterine Bleeding Promethazine HCl (Promethazine 25 Mg Rect Supp) 25 mg [place] Q6H PRN PRN Reason: Nausea And Vomiting Promethazine HCl (Promethazine 25 Mg Tab) 25 mg PO Q6H PRN PRN Reason: Nausea And Vomiting Sodium Chloride (Sodium Chloride 0.9% 10 Ml Flush Syringe) 10 ml IV PRN [facility] [place]/Glycerin ([place]/ Glycerin Pad) 1 each TP PRN PRN PRN Reason: Hemorrhoid/cleansing/soothing Review of Systems All systems: negative Genitourinary: contractions - Vital Signs Vital signs: Vital Signs Pulse Ox 100 03/27/22 11:43 Temp Pulse Resp BP Pulse Ox 97.8 F 74 18 101/55 99 03/28/22 07:45 03/28/22 07:45 03/28/22 07:45 03/28/22 07:45 03/28/22 08:00 - Physical Exam Breasts: Positive: deferred Cardiovascular: Regular rate Lungs: Positive: Clear to auscultation - Obstetrical Cervical Dilatation: 5 Results Result Diagrams: 03/28/22 04:37 Abnormal lab results 03/27/22 Range/Units 11:45 MCV 76 L (79-97) fl MCH 26 L (28-32) pg RDW 15.7 H (13.2-15.2) % Plt Count 138 L (140-440) K/mm3 All other labs normal. Assessment and Plan - Patient Problems (1) labor Current Visit: Yes Status: Acute Plan to address problem: Admit to labor and delivery Anticipate vaginal delivery
--- NOTE | 2022-03-28 10:23 | Progress Note ---
Assessment and Plan - Patient Problems (1) labor Current Visit: Yes Status: Acute Plan to address problem: Routine care Subjective - Subjective Date of service: 03/28/22 Interval history: Patient is currently without complaints. She reports her lochia is minimal. Patient reports: appetite normal, voiding normally, pain well controlled [place]: doing well Objective - Vital Signs Latest vital signs: Vital Signs Temp Pulse Resp BP BP Pulse Ox Pulse Ox 03/28/22 08:00 99 03/28/22 07:45 97.8 F 74 18 101/55 99 03/28/22 07:26 18 03/28/22 06:26 18 03/28/22 04:41 98.4 F 66 18 102/66 03/28/22 00:09 18 03/28/22 00:05 98.9 F 64 18 103/48 100 03/27/22 23:09 18 03/27/22 20:30 98.8 F 68 18 135/76 98 100 03/27/22 18:12 20 03/27/22 17:30 18 03/27/22 16:39 59 L 131/73 88 03/27/22 16:34 61 96 03/27/22 16:32 82 83 L 03/27/22 16:29 61 100 03/27/22 16:24 71 111/61 98 03/27/22 16:19 66 99 03/27/22 16:15 98.8 F 18 03/27/22 16:14 64 100 03/27/22 16:09 65 116/65 100 03/27/22 16:04 61 98 03/27/22 15:59 72 100 03/27/22 15:54 75 113/67 99 03/27/22 15:49 87 100 03/27/22 15:45 78 93 03/27/22 15:44 79 98 03/27/22 15:39 95 H 111/72 100 03/27/22 15:34 95 H 100 03/27/22 15:32 81 93 03/27/22 15:29 72 83 L 03/27/22 15:26 93 H 89 03/27/22 15:24 76 108/59 100 03/27/22 15:19 70 99 03/27/22 15:16 85 90 03/27/22 15:14 85 100 03/27/22 15:11 80 91 03/27/22 15:09 81 107/57 99 03/27/22 15:04 86 99 03/27/22 14:59 91 H 98 03/27/22 14:56 90 117/58 03/27/22 14:55 101 H 93 03/27/22 14:54 101 H 93 03/27/22 14:52 90 108/56 03/27/22 14:50 96 H 116/55 03/27/22 14:49 95 H 100 03/27/22 14:48 95 H 105/51 03/27/22 14:46 92 H 115/55 03/27/22 14:45 98.5 F 20 03/27/22 14:44 101 H 118/67 100 03/27/22 14:43 100 H 140/57 03/27/22 14:39 120 H 160/86 99 03/27/22 14:37 123 H 93 03/27/22 14:36 108 H 149/63 03/27/22 14:34 125 H 151/67 90 03/27/22 14:32 134 H 154/71 03/27/22 14:30 105 H 134/66 03/27/22 14:29 99 H 100 03/27/22 14:28 117 H 147/73 03/27/22 14:26 113 H 137/70 03/27/22 14:24 105 H 139/73 98 03/27/22 14:19 108 H 100 03/27/22 14:07 75 98 03/27/22 14:02 93 H 98 03/27/22 13:57 100 H 100 03/27/22 13:52 99 H 97 03/27/22 13:47 95 H 98 03/27/22 13:42 103 H 100 03/27/22 13:37 101 H 98 03/27/22 13:32 91 H 100 03/27/22 13:27 109 H 99 03/27/22 13:22 111 H 99 03/27/22 13:17 83 97 03/27/22 13:12 98 H 98 03/27/22 13:07 73 99 03/27/22 13:02 109 H 99 03/27/22 12:57 90 99 03/27/22 12:52 106 H 98 03/27/22 12:47 85 99 03/27/22 12:42 89 99 03/27/22 12:37 79 98 03/27/22 12:32 67 98 03/27/22 12:27 80 98 03/27/22 12:22 88 97 03/27/22 12:17 88 96 03/27/22 12:12 95 H 99 03/27/22 12:07 98 H 100 03/27/22 12:02 94 H 98 03/27/22 11:57 91 H 98 03/27/22 11:43 100 Intake and Output 03/27/22 03/28/22 03/28/22 22:59 06:59 14:59 Intake Total 800 Output Total 500 1500 Balance -500 -700 Intake: Oral 560 Intake, Free Water 240 Output: Urine 500 1500 Void 500 1500 Other: Total, Intake Amount 200 Total, Output Amount 500 900 # Voids Void 1 1 Estimated Blood Loss 300 - Labs Labs: Abnormal lab results 03/27/22 Range/Units 11:45 MCV 76 L (79-97) fl MCH 26 L (28-32) pg RDW 15.7 H (13.2-15.2) % Plt Count 138 L (140-440) K/mm3
--- NOTE | 2022-03-28 10:27 | Discharge Summary ---
Providers - Providers Date of Admission: 03/27/22 11:34 Date of discharge: 03/29/22 Attending physician: ALEXEY SHERMAN Primary care physician: ALEXEY SHERMAN Hospitalization Reason for admission: active labor, labor Delivery: Discharge diagnosis: delivery [place] baby: male Hospital course: The patient presented to labor and delivery in active labor. She subsequently had a spontaneous vaginal delivery. Her course was uneventful. Condition at discharge: Good Disposition: 01 HOME / SELF CARE / HOMELESS - Discharge Diagnoses (1) labor Status: Acute Plan - Discharge Medications Prescriptions: Ibuprofen [Motrin] 800 mg PO Q8HR PRN #30 tablet PRN Reason: Pain , Severe (7-10) HYDROcodone/APAP 5-325 [[place] 5/325] 1 each PO Q6HR PRN #15 tablet PRN Reason: Pain - Provider Discharge Summary Activity: no sex for 6 weeks, no heavy lifting 4 weeks, no strenuous exercise Diet: routine Instructions: routine Additional instructions: [] Smoking cessation referral if applicable(refer to patient education folder for contact #) [] Refer to [facility] Booklet Call your doctor immediately for: * Fever > 100.5 * Heavy vaginal bleeding ( >1 pad per hour) * Severe persistent headache * Shortness of breath * Reddened, hot, painful area to leg or breast * Schedule visit in 4 weeks - Follow up plan
[2022-03-28] MEDS: DOCUSATE SODIUM 100 MG CAP PO SCH ×2 (10:33→22:39)
[2022-03-29] MEDS: IBUPROFEN 800 MG TAB PO SCH (06:45)
[2022-03-29 09:14] VITALS: BP 132/72
--- NOTE | 2022-03-30 08:07 | Post Anesthesia Evaluation ---
- Post Anesthesia Evaluation Patient Participated: No Airway Patent: Yes Stable Respiratory Function: Yes Nausea/Vomiting: No Temp > 96.8F: Yes Pain Manageable: Yes Adequeate Hydration: Yes Anesthesia Complications: No Block Receding Appropriately: Yes Patient on Ventilator: No
== END 2022-03-29 11:45 | disposition home or self-care (01) | DRG 775 ==
LOC: TRG 11:33 → APU 11:34 → TRG 12:01 → LD 14:20 → OB 20:08
PROVIDERS: ADMIT Obstetrics & Gynecology; ATTEND Obstetrics & Gynecology
PROC: 10E0XZZ Delivery of Products of Conception, External Approach (ICD-10-PCS; principal; 2022-03-28)
PROC: 3E0R3BZ Introduction of Anesthetic Agent into Spinal Canal, Percutaneous Approach (ICD-10-PCS; 2022-03-28)
PROC: 00HU33Z Insertion of Infusion Device into Spinal Canal, Percutaneous Approach (ICD-10-PCS; 2022-03-28)
DX: O99.214 Obesity complicating childbirth (principal); O60.14X0 Preterm labor third trimester with preterm delivery third trimester, not applicable or unspecified; Z20.822 Contact with and (suspected) exposure to COVID-19; O42.013 Preterm premature rupture of membranes, onset of labor within 24 hours of rupture, third trimester; Z3A.36 36 weeks gestation of pregnancy; Z37.0 Single live birth; O69.81X0 Labor and delivery complicated by cord around neck, without compression, not applicable or unspecified
CPT/HCPCS: 36415; 59025; 84112; 85014; 85018; 85027; 86592; 86850; 86900; 86901; G0378; J0595; J2590; J3010; J7120; U0003